=== PATIENT | male | born 1965 | race Caucasian/White ===

== ENCOUNTER 2024-07-26 04:56 | Observation (INO) ==
--- NOTE | 2024-06-20 14:17 | PAT Medication Instructions ---
Medication Instructions Date of Service June 20, 2024 Home Medications Medication Instructions Recorded etodolac 400 mg tablet 400 mg PO BID #60 tabs 01/15/24 Medication List: cetirizine 10 mg tablet 10 mg PO QAM losartan 100 mg tablet 100 mg PO QAM pantoprazole 20 mg tablet,delayed release (Protonix) 20 mg PO DAILY PRN GERD ropinirole 1 mg tablet 1 mg PO QPM etodolac 400 mg tablet 400 mg PO BID cholecalciferol (vitamin D3) 125 mcg (5,000 unit) tablet (Vitamin D3) 125 mcg PO QPM duloxetine 30 mg capsule,delayed release 30 mg PO BID MEDICATION INSTRUCTIONS: ASK your surgeon for instructions etodolac 400 mg tablet 400 mg PO BID DO NOT take the morning of surgery cetirizine 10 mg tablet 10 mg PO QAM losartan 100 mg tablet 100 mg PO QAM Take morning of surgery With a small sip of water, OTHERWISE NOTHING TO EAT OR DRINK AFTER MIDNIGHT: pantoprazole 20 mg tablet,delayed release (Protonix) 20 mg PO DAILY PRN GERD duloxetine 30 mg capsule,delayed release 30 mg PO BID Take evening before surgery cholecalciferol (vitamin D3) 125 mcg (5,000 unit) tablet (Vitamin D3) 125 mcg PO QPM ropinirole 1 mg tablet 1 mg PO QPM duloxetine 30 mg capsule,delayed release 30 mg PO BID Other Notes If you have any questions please call us at [phone] or [phone] or [phone] or [phone]
--- NOTE | 2024-06-23 10:40 | Anesthesiology Consultation ---
Date of Service June 23, 2024 Assessment & Plan (1) Encounter for pre-operative examination: - Infectious disease screening: Per assessment on 06/23/24- No known recent infectious disease contacts or current infectious disease symptoms. - Patient acceptable risk for surgery pending surgeon-ordered PCP preop evaluation (Dr. Jaylen Bee/[facility], appt 06/28). Chart Review Chart Review: Patient seen in Pre Admission Testing Teaching & Discussion Pre-Anesthesia Teaching/Discussion Notes: Instructed NPO after midnight before surgery,except medications with 15 cc of water. Medication instructions provided according to the PAT guidelines. History Surgery Operation Date: 07/26/24 07:45 Proposed Procedures p C5-C6 Anterior Cervical Discectomy and Fusion - Luis Mohan, Height/Weight Height: 5 ft 10 in Weight: 111.6 kg Allergies Allergy/AdvReac Type Severity Reaction Status Date / Time Sulfa (Sulfonamide Allergy Hives, Verified 06/20/24 14:47 Antibiotics) rash, swelling Medications Home Medications Medication Instructions Recorded Confirmed Last Taken cetirizine 10 mg tablet 10 mg PO QAM 04/17/23 06/20/24 Unknown losartan 100 mg tablet 100 mg PO QAM 12/09/23 06/20/24 Unknown pantoprazole 20 mg tablet,delayed 20 mg PO DAILY PRN GERD 12/09/23 06/20/24 Unknown release (Protonix) ropinirole 1 mg tablet 1 mg PO QPM 12/09/23 06/20/24 Unknown etodolac 400 mg tablet 400 mg PO BID #60 tabs 01/15/24 06/20/24 Unknown cholecalciferol (vitamin D3) 125 125 mcg PO QPM 06/20/24 06/20/24 Unknown mcg (5,000 unit) tablet (Vitamin D3) duloxetine 30 mg capsule,delayed 30 mg PO BID 06/20/24 06/20/24 Unknown release Past Medical History Medical History Anxiety Arthritis Dyslipidemia Hx GERD (gastroesophageal reflux disease) History of COVID-2019- resolved Hypertension Obesity Paresthesia Occasional in both arms (r/t cervical issues) Renal calculi Hx, no surgery Restless leg Sleep apnea CPAP (compliant) Exercise / Class Metabolic Activity II 4-5 Yardwork/Stairs/Walk up hill (one FS: No CP, no SOB) Past Family History Family History Denies family history of Rheumatoid arthritis Past Surgical History Surgical History History of hernia repair As baby Past Anesthesia History No Hx of Anesthesia Complications and No Family Hx of Anesthesia Complications History of PONV No Hx of PONV and No Hx of Motion Sickness Social History Smoking Status: Former smoker Do You Dip or Chew Tobacco: No (Quit 06/08/24; advised NPO protocol) Smoking End Date: Quit Hx Alcohol Use: Yes alcohol intake frequency: holidays/special occasions only Hx Substance Use: No substance use type: does not use Review of Systems Patient denies chest pain, shortness of breath, dyspnea on exertion, fever, chills, cough, wheezing. Physical Exam Vital Signs BP 144/89 P 72 TEMP 98.1 SP02 97%RA RESP 16 Physical Mildly decreased cervical extension range of motion. Full TMJ range of motion. TMD 3 finger breaths Mallampati Score I Dentition: missing molar Lungs: clear throughout to auscultation Cardiac: regular rate and rhythm, no murmurs noted Spine: normal Carotid arteries: negative bruit Extremities: no LE edema Lab Results Anesthesia Preop Results Results Anesthesia Widget: WBC 6.49 K/ul (4.8-10.8) 06/23/24 Hgb 13.8 g/dl (14.0-18.0) L 06/23/24 Hct 41.0 % (42.0-52.0) L 06/23/24 Plt 184 K/uL (130-400) 06/23/24 Na 138 mmol/L (136-145) 06/23/24 K 3.8 mmol/L (3.5-5.1) 06/23/24 Cl 103 mmol/L (98-107) 06/23/24 CO2 28 mmol/L (21-32) 06/23/24 BUN 17 mg/dl (6-23) 06/23/24 Creat 1.13 mg/dl (0.6-1.4) 06/23/24 Glucose Level 107 mg/dl (70-99(Fasting)) H 06/23/24 PT 10.6 Seconds (9.0-12.0) 06/23/24 PTT 27 Seconds (21-31) 06/23/24 INR 1.0 (0.9-1.1) 06/23/24 Urine Color Yellow 06/23/24 Urine Appearance Clear (Clear) 06/23/24 Urine pH 5.5 (4.5-7.5) 06/23/24 Urine Specific [place] 1.019 (1.000-1.030) 06/23/24 Urine Protein Negative (Negative) 06/23/24 Urine Glucose (UA) Negative (Negative) 06/23/24 Urine Ketones Negative (Negative) 06/23/24 Urine Blood Negative (Negative) 06/23/24 Urine Nitrite Negative (Negative) 06/23/24 Urine Bilirubin Negative (Negative) 06/23/24 Urine Urobilinogen Negative (Negative) 06/23/24 Urine Leukocyte Esterase Negative (Negative) 06/23/24 Blood Type A Negative 06/23/24 Antibody Screen NEGATIVE 06/23/24 Testing Electrocardiogram Date: 06/23/24 NSR at 65bpm. "Normal ECG" Chest X-Ray Date: 06/23/24 Findings: There are no confluent pulmonary infiltrates. The heart size is within normal limits. No pleural effusion or pneumothorax is seen. There is no definite pulmonary nodule. No fracture is noted. No foreign body is seen Impression: No active disease
[2024-07-26] MEDS: LR 15ML/HR IV SCH (05:37)
[2024-07-26] MEDS: VANCOMYCIN HCL 1,750 MG in SODIUM CHLORIDE 0.9% 500 ML IV SCH (05:37)
[2024-07-26] MEDS: LR 60ML/HR IV SCH (05:48)
[2024-07-26] MEDS: GABAPENTIN 600 MG DOSE PO SCH (05:50)
[2024-07-26] MEDS: ACETAMINOPHEN 500 MG TAB PO SCH (05:50)
[2024-07-26] MEDS ORDERED: CeleBREX 200 MG CAP PO SCH (06:00)
[2024-07-26] MEDS ORDERED: PROPOFOL IV EMULSION 10 MG/ML 20 ML VIAL IV ONE (06:39)
[2024-07-26] MEDS ORDERED: ONDANSETRON INJ 2 MG/ML 2 ML VIAL ONE (06:39)
[2024-07-26] MEDS ORDERED: LIDOCAINE 2% 2 ML VIAL/AMP(20MG/ML) INFIL ONE (06:39)
[2024-07-26] MEDS ORDERED: ROCURONIUM BROMIDE 10 MG/ML 5 ML VIAL IV ONE ×2 (06:39→08:17)
[2024-07-26] MEDS ORDERED: MIDAZOLAM HCL 1 MG/ML 2ML VIAL ONE (06:39)
[2024-07-26] MEDS ORDERED: DEXAMETHASONE SOD INJ 4 MG/ML VIAL ONE (06:39)
[2024-07-26] MEDS ORDERED: fentaNYL citrate PF 100 MCG/2 ML VIAL ONE (06:39)
[2024-07-26] MEDS ORDERED: ONDANSETRON INJ 2 MG/ML 2 ML VIAL IV PRN ×2 (07:17→12:45)
[2024-07-26] MEDS ORDERED: ATROPINE SULFATE 0.1 MG/ML 10ML SYR IV PRN (07:17)
[2024-07-26] MEDS ORDERED: ePHEDrine sulfate 50 MG/ML AMP IV PRN (07:17)
--- NOTE | 2024-07-26 07:37 | History & Physical Bridge Note ---
Date of Service July 26, 2024 History & Physical Bridge Note I have examined the patient, reviewed the History & Physical and in the interval since the performance of the History & Physical I have noted the following changes of clinical significance: no changes noted
--- NOTE | 2024-07-26 07:38 | History & Physical Report ---
Date of Service July 26, 2024 Assessment & Plan (1) Cervical stenosis of spinal canal: Plan: C5-C6 anterior cervical discectomy and fusion History of Present Illness Chief Complaint: Neck and arm pain Primary Care Provider: Scar Bone PA-C This is a 9-year-old male presents for chronic persistent neck and arm pain after failing course of nonoperative care is here for surgical invention. Allergies Allergy/AdvReac Type Severity Reaction Status Date / Time Sulfa (Sulfonamide Allergy Hives, Verified 07/26/24 05:25 Antibiotics) rash, swelling Home Medications Medication Instructions Recorded Confirmed Type cetirizine 10 mg tablet 10 mg PO QAM 04/17/23 07/26/24 History losartan 100 mg tablet 100 mg PO QAM 12/09/23 07/26/24 History pantoprazole 20 mg tablet,delayed 20 mg PO DAILY PRN GERD 12/09/23 07/26/24 History release (Protonix) ropinirole 1 mg tablet 1 mg PO QPM 12/09/23 07/26/24 History etodolac 400 mg tablet 400 mg PO BID #60 tabs 01/15/24 07/26/24 Rx cholecalciferol (vitamin D3) 125 125 mcg PO QPM 06/20/24 07/26/24 History mcg (5,000 unit) tablet (Vitamin D3) duloxetine 30 mg capsule,delayed 30 mg PO BID 06/20/24 07/26/24 History release Past Med/Surg History Problem List (Updated 07/26/24 @ 07:38 by Luis Mohan DO) Cervical stenosis of spinal canal Cervical radicular pain Paresthesia Arthritis Medical History Anxiety Arthritis Dyslipidemia Hx GERD (gastroesophageal reflux disease) History of COVID-19 2020- resolved Hypertension Obesity Paresthesia Occasional in both arms (r/t cervical issues) Renal calculi Hx, no surgery Restless leg Sleep apnea CPAP (compliant) Surgical History History of hernia repair As baby Family History Denies family history of Rheumatoid arthritis Social History (Updated 04/17/23 @ 08:40 by Luis Hartley DO) Smoking Status: Former smoker Tobacco Type: Smokeless Tobacco (Dip or Chew) Smoking End Date: Quit ; Second Hand Exposure: No; Do You Dip or Chew Tobacco: No (Quit 06/08/24; advised NPO protocol); Tobacco Cessation Education Requested by Patient: No Hx Alcohol Use: Yes Hx Substance Use: No Preferred Language: Mexican Communication Ability: Effective Waistline Joiner Overlock Required: No Beliefs That Will Affect Care: None Current Living Situation: Spouse Other Information That Helps Us Care for You: No Feels Safe at Home: Yes Safety Concerns: Feels Safe At This Time Assistive Devices: CPAP, Glasses and Hearing Aid - Bilateral Assistive Devices Comment: glasses prn Physical Exam Physical Exam: Patient is alert and oriented heart regular rhythm lungs clear Results & Data Results & Data Vital Signs (Past 12 Hours) Vital Signs Temp Pulse Resp BP Pulse Ox O2 Del Method 07/26/24 05:38 Room Air, CPAP 07/26/24 05:27 36.7 C 72 18 164/99 H 96 Room Air
[2024-07-26] MEDS: ceFAZolin 330 MG/ML 1 GM VIAL ONE (08:23)
[2024-07-26] MEDS ORDERED: SUGAMMADEX SODIUM 200 MG/2 ML VIAL IV ONE ×2 (08:49→08:51)
--- NOTE | 2024-07-26 09:02 | Operative Report ---
Post Operative Report Pre & Post Diagnosis Operation Date: 07/26/24 07:45 Pre-Op Diagnosis: Cervical Spondylosis with Radiculopathy, Cervical Post-Op Diagnosis: Cervical Spondylosis with Radiculopathy, Cervical I identified the patient and participated in the time-out.: Yes Procedure Operation Date: 07/26/24 07:45 Actual Procedures #1 anterior cervical discectomy with bilateral foraminotomies C5-C6. #2 anterior cervical arthrodesis C5-C6. #3 placement of Spira 8 mm cage filled with os design bone graft C5-C6. #4 application of K2 and plate and screws across C5-C6. Surgeon Luis Mohan, Tactical Air Control Party Manager Rossy Vang Estimated Blood Loss 10 Findings Consistent with Post-Op Diagnosis Specimens None Indications This is a 59-year-old male presents publish diagnosis of failing course of nonoperative care is here for surgical invention. Description of Procedure Patient was met with identified informed consent obtained. Patient was then taken to the operative suite underwent intubation placed in a supine position on the William table with head Wheat head field hockey coach. All bony promises well-padded eyes inspected to ensure no external pressure placed upon the. This point the anterior cervical spine was prepped and draped in sterile fashion. The assistance of fluoroscopy notified the C5-C6 disc base a transverse incision was placed on the right anterior aspect of the cervical spine overlying this region. Blunt dissection with assistance of bipolar electrocautery performed down to and exposing the anterior cervical spine at C5-C6. Self-retaining retractors placed. Then performed a complete discectomy of C5-C6 out to the uncovertebral joints bilaterally. [place] distracting pins were utilized to assist in visualization. Removed all posterior annular fibers longitudinal ligament bilateral foraminotomies performed. Endplates burred to subcortical bleeding b one and an 8 mm spiral cage filled with os design bone graft tapped in position. Distracting apparatus was removed. All anterior osteophytes burred to smooth cortical surface. K2 M plate and screws applied with the assistance of fluoroscopy. The incision was then closed with 2 Vicryl in the fascia and 4 Monocryl for final skin closure. Steri-Strips sterile dressing placed. Patient waken taken to recovery to PACU in stable condition. Please note spinal cord monitoring was utilized at the procedure no changes noted. Rossy Vang was present at the entire surgery involved the patient positioning complex portion of the surgery and final skin closure. I attest to the content of the Intraoperative Record and any orders documented therein. Any exceptions are noted below.
[2024-07-26] MEDS: fentaNYL citrate PF 100 MCG/2 ML VIAL IV PRN (09:19)
--- NOTE | 2024-07-26 09:41 | Fluoroscopy Report ---
FL cervical 2-3V CLINICAL HISTORY: C5-C6 ACDF COMPARISON STUDY: None. FLUOROSCOPY TIME: 8.4 seconds. Ka,r: 1.23 mGy FLUOROSCOPIC IMAGES: 2 FINDINGS: Fluoroscopy was provided during C5-C6 anterior discectomy and fusion. Hardware is intact. E ndotracheal tube is partially imaged. Linear radiodensity on the initial image is not present on the subsequent image. Suspected surgical drain in place. IMPRESSION: Fluoroscopy provided during C5-C6 anterior discectomy and fusion. ACT 112: Negative or not required by law. Electronically signed by: Chilo Silver M.D. 07/26/2024 9:39 AM
[2024-07-26] MEDS ORDERED: ePHEDrine sulfate 50 MG/5 ML SYR ONE (10:03)
[2024-07-26] MEDS: hydrALAZINE HCL 20 MG/ML VIAL IV STA (10:38)
[2024-07-26] MEDS: HYDROmorphone INJ 1 MG/ML SYRINGE IV PRN (10:48)
[2024-07-26] MEDS ORDERED: ACETAMINOPHEN 1,000 MG/100 ML VIAL IV PRN (12:45)
[2024-07-26] MEDS ORDERED: diphenhydrAMINE Capsule 25 MG CAP PO PRN (12:45)
[2024-07-26] MEDS ORDERED: hydrOXYzine HCl 25 MG TAB PO PRN (12:45)
[2024-07-26] MEDS ORDERED: HYDROmorphone INJ 0.5 MG/0.5 ML SYR IV PRN (12:45)
[2024-07-26] MEDS ORDERED: NALOXONE HCL 0.4 MG/1 ML VIAL/CARP IV PRN (12:45)
[2024-07-26] MEDS ORDERED: bisacodyL 10 MG SUPP PR PRN (12:45)
[2024-07-26] MEDS ORDERED: ALUMINUM/MAGNESIUM SUSP 30 ML UDC PO PRN (12:45)
[2024-07-26] MEDS ORDERED: MAGNESIUM HYDROXIDE SUSP 30 ML UDC PO PRN (12:45)
[2024-07-26] MEDS ORDERED: LORazepam 2 MG/1 ML VIAL IV PRN (12:45)
[2024-07-26] MEDS ORDERED: DO NOT ADMINISTER FLU VACCINE PRN (12:45)
[2024-07-26] MEDS ORDERED: METOCLOPRAMIDE HCL INJ 5 MG/ML 2 ML VIAL IV PRN (12:45)
[2024-07-26] MEDS ORDERED: PANTOprazole 40 MG TAB PO PRN (12:45)
[2024-07-26] MEDS ORDERED: dexAMETHasone 8 MG in SYRINGE 0 ML IV PRN (12:45)
[2024-07-26] MEDS ORDERED: SOD PHOSPHATE/SOD BIPHOSPHATE ENEMA 132 ML BTL PR PRN (12:45)
[2024-07-26] MEDS ORDERED: ACETAMINOPHEN 500 MG TAB PO PRN (12:45)
[2024-07-26] MEDS ORDERED: PROMETHAZINE 12.5 MG/50.5 ML BAG IV PRN (12:45)
[2024-07-26] MEDS ORDERED: LORazepam 0.5 MG TAB PO PRN (12:45)
[2024-07-26] MEDS ORDERED: HYDROmorphone INJ 1 MG/ML SYRINGE IV PRN (12:45)
[2024-07-26] MEDS ORDERED: RACEPINEPHRINE 2.25% NEBU SOLN 0.5 ML VIAL INH PRN (12:45)
[2024-07-26] MEDS ORDERED: ONDANSETRON 4 MG OD TAB PO PRN (12:45)
[2024-07-26] MEDS ORDERED: DO NOT ADMINISTER PNEUMOCOCCAL VACCINE PRN (12:45)
[2024-07-26] MEDS ORDERED: FAMOTIDINE 20 MG TAB PO PRN (12:45)
[2024-07-26] MEDS: FLOSEAL HEMOSTATIC MATRIX 10ML TOP ONE (12:57)
[2024-07-26] MEDS: hydrALAZINE HCL 20 MG/ML VIAL ONE (12:58)
--- NOTE | 2024-07-26 13:01 | Consultation ---
<Statement entered by Jude Rahman DO - 07/26/24 14:57> I have seen and examined the patient and have discussed the case with the advance practice provider. I have reviewed the advanced practitioner's documentation, and I agree with, and take responsibility for that plan of care. Patient states he has a moderate amount of pain. States he did not take any of his medications this morning per for surgery. is at bedside Dose losartan today, continue to monitor blood pressure Patient brought his own CPAP from home and can use to treat his sleep apnea Further medical plan of care as outlined below I spent a total of 15 minutes coordinating, documenting, and providing care for this patient excluding time spent by another provider/QHP. Date of Consultation July 26, 2024 Assessment & Plan (1) S/P spinal surgery: (2) Cervical stenosis of spinal canal: (3) Hypertension: (4) Anxiety: (5) GERD (gastroesophageal reflux disease): (6) Restless leg: (7) Dyslipidemia: (8) Sleep apnea: Plan This is a 59yo M with a PMH of HTN, HLD, restless leg syndrome, GERD and other medical problems listed below who is POD#0 s/p anterior cervical discectomy with bilateral foraminotomies C5-C6 etc by Dr. Mohan. S/p spinal surgery POD#0 s/p anterior cervical discectomy with bilateral foraminotomies C5-C6 etc by Dr. Mohan Per ortho for pain control, wound care, anticoagulation and activities Monitor H&H (pre-op hgb 13.8, EBL 10ml), monitor with daily CBC Continue duloxetine, holding etodolac Continue incentive spirometry, PT/OT when appropriate HTN BP elevated post-operatively at 179/104. Did not take meds pre-operatively, will give his losartan now Optimize pain control Monitor closely RLS Continue ropinirole HS GERD Continue pantoprazole PRN DVT Ppx: Aristides nielsen Code status: FULL PCP: [facility] in [place] Dispo: Admitted to med/surg by primary service Patient seen in collaboration with Dr. Rahman. Please see addendum. I spent a total of 50 minutes coordinating, documenting, and providing care for this patient excluding time spent in the performance of separately billed services or time spent by another provider/QHP. History of Present Illness Reason for Consultation: post op med mgmt Attending Physician: Luis M Kimberlee, DO History of Present Illness This is a 59yo M with a PMH of HTN, HLD, restless leg syndrome, GERD and other medical problems listed below who is POD#0 s/p anterior cervical discectomy with bilateral foraminotomies C5-C6 etc by Dr. Mohan. Patient is feeling well postoperatively. Has a feeling of pressure at surgical site but denies any pain or paresthesias in bilateral upper extremity. Denies any other acute issues postoperatively. No fever, chills, lightheadedness, headache, chest pain or shortness of breath, nausea, vomiting, abdominal pain. Has not urinated postoperatively. No recent diarrhea or constipation. Receives most of his medical care through the [facility] in [place] but also follows with a primary care provider and [facility]. Allergies Allergy/AdvReac Type Severity Reaction Status Date / Time Sulfa (Sulfonamide Allergy Hives, Verified 07/26/24 05:25 Antibiotics) rash, swelling Home Medications Medication Instructions Recorded Confirmed Type cetirizine 10 mg tablet 10 mg PO QAM 04/17/23 07/26/24 History losartan 100 mg tablet 100 mg PO QAM 12/09/23 07/26/24 History pantoprazole 20 mg tablet,delayed 20 mg PO DAILY PRN GERD 12/09/23 07/26/24 History release (Protonix) ropinirole 1 mg tablet 1 mg PO QPM 12/09/23 07/26/24 History etodolac 400 mg tablet 400 mg PO BID #60 tabs 01/15/24 07/26/24 Rx cholecalciferol (vitamin D3) 125 125 mcg PO QPM 06/20/24 07/26/24 History mcg (5,000 unit) tablet (Vitamin D3) duloxetine 30 mg capsule,delayed 30 mg PO BID 06/20/24 07/26/24 History release Patient History Medical History (Updated 07/26/24 @ 13:03 by Tianna Jensen PA-C) Obesity Anxiety Hypertension Paresthesia Occasional in both arms (r/t cervical issues) Arthritis GERD (gastroesophageal reflux disease) Renal calculi Hx, no surgery Dyslipidemia Hx Sleep apnea CPAP (compliant) Restless leg Surgical History History of hernia repair As baby Family History (Updated 07/26/24 @ 14:10 by Tianna Jensen PA-C) Other Diabetes Denies family history of Rheumatoid arthritis Social History Smoking Status: Former smoker Tobacco Type: Smokeless Tobacco (Dip or Chew) Smoking End Date: Quit ; Second Hand Exposure: No; Do You Dip or Chew Tobacco: No (Quit 06/08/24; advised NPO protocol); Tobacco Cessation Education Requested by Patient: No Hx Alcohol Use: Yes Hx Substance Use: No Preferred Language: Wolof Communication Ability: Effective Family Sociologist Required: No Beliefs That Will Affect Care: None Current Living Situation: Spouse Other Information That Helps Us Care for You: No Feels Safe at Home: Yes Safety Concerns: Feels Safe At This Time Assistive Devices: CPAP, Glasses and Hearing Aid - Bilateral Assistive Devices Comment: glasses prn Review of Systems Review of Systems: At least ten systems reviewed and negative except as noted in the HPI. Physical Exam Physical Exam: General Appearance: WD/WN, vitals as above, NAD, pleasant, conversing easily Head: normocephalic, atraumatic Eyes: normal inspection ENT: external ear and nose normal Neck: + C collar in place, anterior cervical surgical dressing c/d/i, DANK drain visualized Respiratory: normal respiratory effort, lungs clear to auscultation Cardiovascular: regular rate, rhythm, normal peripheral pulses, no BLE edema Abdomen/GI: normal bowel sounds, soft, nontender Extremities/Musculoskeletal: no cyanosis or clubbing, extremities motor strength 5/5, + teds Neurologic: PERRL, CN's II-XI intact bilaterally and moves all extremities Psychiatric: A+Ox3, euthymic affect Skin: no rashes, normal color, warm/dry Results & Data Vital Signs (Past 12 Hours) Vital Signs Temp Pulse Pulse Resp BP BP Pulse Ox 07/26/24 12:52 83 16 97 07/26/24 12:15 36.2 C L 78 15 167/106 H 96 07/26/24 11:45 83 14 169/103 H 97 07/26/24 11:30 83 23 178/107 H 96 07/26/24 11:15 78 16 177/103 H 96 07/26/24 11:00 72 15 160/97 H 96 07/26/24 10:45 75 15 167/99 H 96 07/26/24 10:35 71 14 169/105 H 96 07/26/24 10:25 68 15 169/110 H 95 07/26/24 10:15 36 C L 65 17 158/100 H 98 07/26/24 10:05 68 16 159/104 H 97 07/26/24 09:55 67 17 128/92 96 07/26/24 09:45 68 14 155/98 H 99 07/26/24 09:35 78 17 148/90 H 98 07/26/24 09:25 75 14 147/90 H 97 07/26/24 09:15 79 15 106/90 99 07/26/24 09:07 36.1 C L 78 17 145/95 H 97 07/26/24 05:38 07/26/24 05:27 36.7 C 72 18 164/99 H 96 O2 Del Method O2 Flow Rate 07/26/24 12:52 Nasal Cannula 2 07/26/24 12:15 Nasal Cannula 2 07/26/24 11:45 Nasal Cannula 2 07/26/24 11:30 Nasal Cannula 2 07/26/24 11:15 Nasal Cannula 2 07/26/24 11:00 Nasal Cannula 2 07/26/24 10:45 Nasal Cannula 2 07/26/24 10:35 Nasal Cannula 2 07/26/24 10:25 Nasal Cannula 2 07/26/24 10:15 Nasal Cannula 2 07/26/24 10:05 Nasal Cannula 2 07/26/24 09:55 Nasal Cannula 2 07/26/24 09:45 Oxymask 4 07/26/24 09:35 Oxymask 5 07/26/24 09:25 Oxymask 5 07/26/24 09:15 Oxymask 5 07/26/24 09:07 Oxymask 5 07/26/24 05:38 Room Air, CPAP 07/26/24 05:27 Room Air Diagnostic Findings Cervical Spine X-Ray 07/26/24 07:45 FL cervical 2-3V CLINICAL HISTORY: C5-C6 ACDF COMPARISON STUDY: None. FLUOROSCOPY TIME: 8.4 seconds. Ka,r: 1.23 mGy FLUOROSCOPIC IMAGES: 2 FINDINGS: Fluoroscopy was provided during C5-C6 anterior discectomy and fusion. Hardware is intact. Endotracheal tube is partially imaged. Linear radiodensity on the initial image is not present on the subsequent image. Suspected surgical drain in place. IMPRESSION: Fluoroscopy provided during C5-C6 anterior discectomy and fusion. ACT 112: Negative or not required by law. Electronically signed by: Chilo Silver M.D. 07/26/2024 9:39 AM
--- NOTE | 2024-07-26 13:53 | Anesthesiology Progress Note ---
Date of Service July 26, 2024 Anesthesia Post Procedure Vital Signs Vital Signs: Temp Pulse Pulse Resp BP BP Pulse Ox 07/26/24 13:40 35.9 C L 89 16 179/104 H 97 07/26/24 13:10 36.7 C 75 16 172/106 H 97 07/26/24 12:52 83 16 97 07/26/24 12:45 07/26/24 12:40 36.5 C 83 16 163/101 H 96 07/26/24 12:15 36.2 C L 78 15 167/106 H 96 07/26/24 11:45 83 14 169/103 H 97 07/26/24 11:30 83 23 178/107 H 96 07/26/24 11:15 78 16 177/103 H 96 07/26/24 11:00 72 15 160/97 H 96 07/26/24 10:45 75 15 167/99 H 96 07/26/24 10:35 71 14 169/105 H 96 07/26/24 10:25 68 15 169/110 H 95 07/26/24 10:15 36 C L 65 17 158/100 H 98 07/26/24 10:05 68 16 159/104 H 97 07/26/24 09:55 67 17 128/92 96 07/26/24 09:45 68 14 155/98 H 99 07/26/24 09:35 78 17 148/90 H 98 07/26/24 09:25 75 14 147/90 H 97 07/26/24 09:15 79 15 106/90 99 07/26/24 09:07 36.1 C L 78 17 145/95 H 97 07/26/24 05:38 07/26/24 05:27 36.7 C 72 18 164/99 H 96 Pulse Ox O2 Del Method O2 Del Method O2 Flow Rate O2 Flow Rate 07/26/24 13:40 Nasal Cannula 07/26/24 13:10 Nasal Cannula 2 07/26/24 12:52 Nasal Cannula 2 07/26/24 12:45 98 Nasal Cannula 2 07/26/24 12:40 Nasal Cannula 2 07/26/24 12:15 Nasal Cannula 2 07/26/24 11:45 Nasal Cannula 2 07/26/24 11:30 Nasal Cannula 2 07/26/24 11:15 Nasal Cannula 2 07/26/24 11:00 Nasal Cannula 2 07/26/24 10:45 Nasal Cannula 2 07/26/24 10:35 Nasal Cannula 2 07/26/24 10:25 Nasal Cannula 2 07/26/24 10:15 Nasal Cannula 2 07/26/24 10:05 Nasal Cannula 2 07/26/24 09:55 Nasal Cannula 2 07/26/24 09:45 Oxymask 4 07/26/24 09:35 Oxymask 5 07/26/24 09:25 Oxymask 5 07/26/24 09:15 Oxymask 5 07/26/24 09:07 Oxymask 5 07/26/24 05:38 Room Air, CPAP 07/26/24 05:27 Room Air Pain Intensity Neck: Pain Intensity: 4 Right Shoulder: Pain Intensity: 6 Transfer of Care Handoff Completed per policy Notes Mental Status: alert / awake / arousable and participated in evaluation Patient Amnestic to Procedure: Yes Nausea / Vomiting: adequately controlled Pain: adequately controlled Airway Patency, RR, SpO2: stable & adequate BP & HR: stable & adequate Hydration State: stable & adequate Anesthetic Complications: no major complications apparent and Pt Satisfied with anesthetic care
[2024-07-26] MEDS: ceFAZolin 2000MG 2,000 MG/15 ML SYR IV SCH (14:47)
[2024-07-26] MEDS: LOSARTAN POTASSIUM 50 MG TAB PO ONE (14:47)
[2024-07-26] MEDS: traMADol HCL 50 MG TABLET PO PRN (16:53)
[2024-07-26] MEDS: rOPINIRole HCL 1 MG TABLET PO SCH (20:19)
[2024-07-26] MEDS: DULoxetine HCL 30 MG CAP PO SCH (20:19)
[2024-07-26] MEDS: CHOLECALCIFEROL 125 MCG (5,000 UNITS) TAB PO SCH (20:19)
[2024-07-26] MEDS: DOCUSATE SODIUM/SENNA 50/8.6MG TAB PO SCH (20:20)
[2024-07-27] MEDS: oxyCODONE HCL IR 5 MG TAB (IMMEDIATE RELEASE) PO PRN (02:08)
[2024-07-27] MEDS: POLYETHYLENE (MIRALAX) 17 GM PACK PO SCH (06:19)
[2024-07-27 06:35] LABS: Hematocrit (blood only) 41.6 % (42.0-52.0); Hemoglobin 13.8 g/dl (14.0-18.0); Mean Corpuscular Hemoglobin 28.7 pg (25.0-34.0); Mean Corpuscular Hgb Conc 33.2 g/dL (32.0-36.0); Mean Corpuscular Volume 86.5 fL (80.0-100.0); Mean Platelet Volume 10.3 fL (9.4-12.4); Platelet Count 216 K/uL (130-400); RDW Coefficient of Variation 12.9 % (11.5-14.5); RDW Standard Deviation 40.6 fL (36.4-46.3); Red Blood Count 4.81 M/uL (4.70-6.10); White Blood Count 12.55 K/ul (4.8-10.8)
[2024-07-27 06:55] LABS: BUN Creatinine Ratio 14.2 (10-20); Calcium 9.5 mg/dl (8.6-10.3); Creatinine Clr Calc Pharmacy 89.9 ml/min
[2024-07-27 07:40] VITALS: O2SAT 97
[2024-07-27] MEDS: CETIRIZINE HCL 10 MG TABLET PO SCH (07:42)
[2024-07-27] MEDS: LOSARTAN POTASSIUM 50 MG TAB PO SCH (07:43)
[2024-07-27] MEDS: dexAMETHasone 6 MG in SYRINGE 0 ML IV SCH (07:43)
[2024-07-27 08:01] VITALS: BP 138/88; PULSE 64; RESP 15; TEMP 98.2
--- NOTE | 2024-07-27 08:21 | Discharge Summary ---
Date of Service July 27, 2024 Admission HPI Per Admitting Provider This is a 9-year-old male presents for chronic persistent neck and arm pain after failing course of nonoperative care is here for surgical invention. Principal Diagnosis Cervical spinal stenosis with radiculopathy Discharge Data Allergies Allergy/AdvReac Type Severity Reaction Status Date / Time Sulfa (Sulfonamide Allergy Hives, Verified 07/26/24 05:25 Antibiotics) rash, swelling Consultations 07/26/24 12:45 Consult Hospitalist Routine Procedures Performed Operation Date: 07/26/24 07:45 Actual Procedures p C5-C6 Anterior Cervical Discectomy and Fusion, Spinal Cord Monitoring(Not Applicable) - Luis Mohan DO Ordered Studies 07/26/24 07:45 FL cervical 2-3V Routine Hospital Course (1) Cervical stenosis of spinal canal: Patient underwent anterior cervical discectomy and fusion tolerated as well as taken orthopedic for postoperative bed postop he progressed appropriately. Swallowing well. No hoarseness. Arm symptoms markedly improved. Subsequently discharged home. Discharge orders instructions from the chart for further review. Total Time Total Time Spent Total Time Spent (In Minutes): 20 minutes Discharge Plan Discharge Items Patient Disposition: Home - Self-Care Reason For Visit: Cervical Spondylosis with Radiculopathy, Cervical Discharge Diagnosis: Cervical radiculopathy Activity: As commented below Non-emergency contact: Primary Care Provider Call non-emergency contact if: you have any medication questions Follow-up/Referrals: Scar Bone PA-C [Primary Care Provider] - Diet: Regular Addtl Attending Provider Instructions: ACTIVITY RECOMMENDATIONS: SELF CARE INSTRUCTIONS AFTER CERVICAL FUSIONS 1. No smoking. Smoking drastically decreases the chance of a solid fusion. 2. No bending, lifting more than 5 pounds, or twisting (roll like a log when turning in bed). 3. You may shower 3 days after surgery. Thoroughly dry wound. Do not soak in the tub. 4. Cervical collar: Must be worn at all times including sleeping. You may remove the brace only to bath, eat and if you are sitting in a recliner. 5. Please walk as much as you can for exercise. Gradually increase the distance that you walk as your endurance increases. 6. You may return to previous diet. SPECIAL CARE INSTRUCTIONS: VERY IMPORTANT TO READ AND REVIEW A. Do not take any anti-inflammatory medications (i.e. Indocin, Advil, Aspirin, Naprosyn, Aleve, Motrin, etc.) as these may inhibit the chance of a solid fusion. Tylenol is okay to take. B. Your surgical incision has been closed with a cosmetic suture under the skin that will dissolve in about 6 weeks. In 14 days, you can use a pair of clean scissors and cut the suture that is left outside of the skin at the ends of your incision. C. Complications are uncommon, but please contact us if you have any signs or symptoms of: 1. wound infection (fever higher than 102.5 degrees F, redness, separation of wound, drainage, or increasing pain from the incision) 2. blood clots in legs (pain, swelling, redness and warmth in legs) 3. urinary tract infection (fever higher than 102.5 degrees, burning upon urination or increased frequency of urination) 4. nerve problems (inability to walk on your toes or heels, numbness, loss of bowel or bladder control) 5. any other symptoms that concern you. D. Please call the office at if you have any concerns or questions about your operation or recovery. MANAGING PAIN AFTER SPINAL SURGERY 1. Narcotic medication is intended for short-term use and will be provided for surgical pain. Surgical pain usually lasts for a period of 4-6 weeks. Narcotic medication includes Percocet, Vicodin, Darvocet, Tylenol #3 or Lortab. 2. Longer-term pain is more appropriately treated with non-narcotic medication such as Tylenol ES. 3. Muscle spasm is not appropriately treated with narcotics. Muscle relaxers such as Soma, Flexeril or Skelaxin can be used along with Tylenol ES. 4. Remember that we all live with some "aches and pains". This is not unusual or uncommon after an injury or as we get older. 5. We will provide appropriate medication within the normal guidelines of their prescribed use. We will also be very cautious and aware of potential abuse and extended duration of patients' medication needs. 6. Please allow 2-3 days to process refills. Prescriptions will not be mailed but must be picked up at the office. FOLLOW UP VISIT: Keep your scheduled follow-up appointment. Any questions, please call the office at . Pending Studies at Discharge: No Stand-Alone Forms: My [facility], Smoking Cessation Medications and DC Order Prescriptions: New tramadol 50 mg tablet 50 mg PO Q6H PRN (Reason: pain, moderate) Qty: 30 0RF oxycodone 5 mg tablet 5 mg PO Q6H PRN (Reason: pain) Qty: 20 0RF Continued cetirizine 10 mg tablet 10 mg PO QAM ropinirole 1 mg tablet 1 mg PO QPM losartan 100 mg tablet 100 mg PO QAM pantoprazole [Protonix] 20 mg tablet,delayed release (DR/EC) 20 mg PO DAILY PRN (Reason: GERD) Patient Comments: takes ~every other day to every 3 days duloxetine 30 mg capsule,delayed release(DR/EC) 30 mg PO BID cholecalciferol (vitamin D3) [Vitamin D3] 125 mcg (5,000 unit) Tablet 125 mcg PO QPM Discontinued etodolac 400 mg tablet 400 mg PO BID Qty: 60 2RF Discharge Orders: Discharge Order (Routine); Ordered 07/27/24 Ordered By: Luis Mohan Admission Data Admit Date/Time: 07/26/24 09:05 Attending Provider: Luis Mohan Admit Provider: Luis Mohan Primary Care Provider: Scar Bone Other Providers: Jude Rahman
== END 2024-07-27 11:15 | disposition home or self-care (01) ==
LOC: PACUINP 04:56 → ASU 04:56 → 3E 12:41

== ENCOUNTER 2025-03-03 05:52 | Inpatient (IN) ==
--- NOTE | 2025-01-27 11:33 | PAT Medication Instructions ---
Medication Instructions Date of Service January 27, 2025 Home Medications Medication Instructions Recorded oxycodone 5 mg tablet 5 mg PO Q6H PRN pain #20 tabs 07/26/24 tramadol 50 mg tablet 50 mg PO Q6H PRN pain, moderate 07/26/24 #30 tabs cetirizine 10 mg tablet 10 mg PO QAM losartan 100 mg tablet 100 mg PO QAM pantoprazole 20 mg tablet,delayed release (Protonix) 20 mg PO DAILY PRN GERD ropinirole 1 mg tablet 1 mg PO QPM cholecalciferol (vitamin D3) 125 mcg (5,000 unit) tablet (Vitamin D3) 125 mcg PO QPM oxycodone 5 mg tablet 5 mg PO Q6H PRN pain tramadol 50 mg tablet 50 mg PO Q6H PRN pain, moderate cyanocobalamin (vitamin B-12) 1,000 mcg/mL injection solution 0 mcg IM Q30D nortriptyline 50 mg capsule 50 mg PO HS tizanidine 4 mg tablet 4 mg PO UD PRN muscle spasms Continue as directed pantoprazole 20 mg tablet,delayed release (Protonix) 20 mg PO DAILY PRN GERD (if needed) cyanocobalamin (vitamin B-12) 1,000 mcg/mL injection solution 0 mcg IM Q30D DO NOT take the morning of surgery cetirizine 10 mg tablet 10 mg PO QAM losartan 100 mg tablet 100 mg PO QAM Take morning of surgery With a small sip of water, OTHERWISE NOTHING TO EAT OR DRINK AFTER MIDNIGHT: oxycodone 5 mg tablet 5 mg PO Q6H PRN pain (if needed) tramadol 50 mg tablet 50 mg PO Q6H PRN pain, moderate (if needed) tizanidine 4 mg tablet 4 mg PO UD PRN muscle spasms (if needed) Take evening before surgery ropinirole 1 mg tablet 1 mg PO QPM cholecalciferol (vitamin D3) 125 mcg (5,000 unit) tablet (Vitamin D3) 125 mcg PO QPM oxycodone 5 mg tablet 5 mg PO Q6H PRN pain (if needed) tramadol 50 mg tablet 50 mg PO Q6H PRN pain, moderate (if needed) nortriptyline 50 mg capsule 50 mg PO HS tizanidine 4 mg tablet 4 mg PO UD PRN muscle spasms (if needed) Other Notes If you have any questions please call us at [phone] or [phone] or [phone] or [phone]
--- NOTE | 2025-02-02 09:06 | Anesthesiology Consultation ---
Date of Service February 02, 2025 Assessment & Plan (1) Encounter for pre-operative examination: - Check BSG DOS (Elevated glucose at 140 on preop labs. No reported hx of diabetes/prediabetes. Will recheck BSG DOS). - Infectious disease screening: Per assessment on 01/26/25- No known recent infectious disease contacts or current infectious disease symptoms. - S/P C5-6 ACDF (07/26/24): Grade view 1, atraumatic elective glidescope#4, ETT 7.5, [facility] - Patient acceptable risk for surgery pending surgeon-ordered PCP preop evaluation (JORI Nguyen, appt ~02/28). Chart Review Chart Review: Patient seen in Pre Admission Testing Teaching & Discussion Pre-Anesthesia Teaching/Discussion Notes: Instructed NPO after midnight before surgery,except medications with 15 cc of water. Medication instructions provided according to the PAT guidelines. History Surgery Operation Date: 03/03/25 07:45 Proposed Procedures p L5-S1 Decompression and Fusion - Luis oMhan DO Height/Weight Height: 5 ft 10 in Weight: 107.8 kg Allergies Allergy/AdvReac Type Severity Reaction Status Date / Time Sulfa (Sulfonamide Allergy Hives, Verified 01/26/25 12:12 Antibiotics) rash, swelling Medications Home Medications Medication Instructions Recorded Confirmed Last Taken cetirizine 10 mg tablet 10 mg PO QAM 04/17/23 01/26/25 07/24/24 losartan 100 mg tablet 100 mg PO QAM 12/09/23 01/26/25 07/24/24 pantoprazole 20 mg tablet,delayed 20 mg PO DAILY PRN GERD 12/09/23 01/26/25 07/19/24 release (Protonix) ropinirole 1 mg tablet 1 mg PO QPM 12/09/23 01/26/25 07/25/24 21:00 cholecalciferol (vitamin D3) 125 125 mcg PO QPM 06/20/24 01/26/25 07/25/24 17:00 mcg (5,000 unit) tablet (Vitamin D3) oxycodone 5 mg tablet 5 mg PO Q6H PRN pain #20 tabs 07/26/24 01/26/25 Unknown tramadol 50 mg tablet 50 mg PO Q6H PRN pain, moderate 02/18/25 08/21/25 Unknown #30 tabs cyanocobalamin (vitamin B-12) 0 mcg IM Q30D 01/26/25 01/26/25 Unknown 1,000 mcg/mL injection solution nortriptyline 50 mg capsule 50 mg PO HS 01/26/25 01/26/25 Unknown tizanidine 4 mg tablet 4 mg PO UD PRN muscle spasms 01/26/25 01/26/25 Unknown Past Medical History Medical History Anxiety Arthritis Dyslipidemia Hx GERD (gastroesophageal reflux disease) Hypertension Memory impairment Hx 11/2024, had recent testing due to episodes of memory changes EEG 12/05/24: "EEG was normal during wakefulness and drowsiness. No focal abnormalities, potentially epileptogenic discharges, or abnormal slow activity were seen" Patient states he was told "nothing to worry about" Obesity Paresthesia Occasional in both arms (r/t cervical issues); improved since neck surgery 07/2024 Renal calculi Hx, no surgery Restless leg Sleep apnea CPAP (compliant) Exercise / Class Metabolic Activity II 4-5 Yardwork/Stairs/Walk up hill (one FS: No CP, no SOB) Past Family History Family History Other Diabetes Denies family history of Rheumatoid arthritis Past Surgical History Surgical History History of hernia repair As baby Hx of cervical spine surgery C5-6 ACDF (07/26/24): Grade view 1, atraumatic elective glidescope#4, ETT 7.5, [facility] Past Anesthesia History No Hx of Anesthesia Complications and No Family Hx of Anesthesia Complications History of PONV No Hx of PONV and No Hx of Motion Sickness Social History Smoking Status: Former smoker Do You Dip or Chew Tobacco: No (quit 06/08/24) Smoking End Date: 25-30 years ago Hx Alcohol Use: Yes alcohol intake frequency: holidays/special occasions only Hx Substance Use: No substance use type: does not use Review of Systems Patient denies chest pain, shortness of breath, dyspnea on exertion, fever, chills, cough, wheezing, palpitations. Physical Exam Vital Signs BP 112/79 P 68 TEMP 97.8 SP02 98%RA RESP 16 Physical Decreased cervical extension range of motion. Full TMJ range of motion. TMD 3 finger breaths Mallampati Score I Dentition: no dentition abnormality Lungs: clear throughout to auscultation Cardiac: regular rate and rhythm, no murmurs noted Spine: normal Carotid arteries: negative bruit Extremities: no LE edema Lab Results Anesthesia Preop Results Results Anesthesia Widget: WBC 5.69 K/ul (4.8-10.8) 02/02/25 Hgb 13.6 g/dl (14.0-18.0) L 02/02/25 Hct 41.2 % (42.0-52.0) L 02/02/25 Plt 167 K/uL (130-400) 02/02/25 Na 139 mmol/L (136-145) 02/02/25 K 3.9 mmol/L (3.5-5.1) 02/02/25 Cl 104 mmol/L (98-107) 02/02/25 CO2 28 mmol/L (21-32) 02/02/25 BUN 12 mg/dl (6-23) 02/02/25 Creat 1.20 mg/dl (0.6-1.4) 02/02/25 Glucose Level 140 mg/dl (70-99(Fasting)) H 02/02/25 PT 10.5 Seconds (9.0-12.0) 02/02/25 PTT 28 Seconds (21-31) 02/02/25 INR 1.0 (0.9-1.1) 02/02/25 Urine Color Yellow 02/02/25 Urine Appearance Clear (Clear) 02/02/25 Urine pH 6.0 (4.5-7.5) 02/02/25 Urine Specific Jay 1.007 (1.000-1.030) 02/02/25 Urine Protein Negative (Negative) 02/02/25 Urine Glucose (UA) Negative (Negative) 02/02/25 Urine Ketones Negative (Negative) 02/02/25 Urine Blood Negative (Negative) 02/02/25 Urine Nitrite Negative (Negative) 02/02/25 Urine Bilirubin Negative (Negative) 02/02/25 Urine Urobilinogen Negative (Negative) 02/02/25 Urine Leukocyte Esterase Negative (Negative) 02/02/25 Blood Type A Negative 02/02/25 Antibody Screen NEGATIVE 02/02/25 Testing Electrocardiogram Date: 06/23/24 NSR at 65bpm. "Normal ECG" Chest X-Ray Date: 06/23/24 Findings: There are no confluent pulmonary infiltrates. The heart size is within normal limits. No pleural effusion or pneumothorax is seen. There is no definite pulmonary nodule. No fracture is noted. No foreign body is seen Impression: No active disease
[2025-03-03] MEDS: CeleBREX 200 MG CAP PO SCH (06:21)
[2025-03-03] MEDS: ACETAMINOPHEN 500 MG TAB PO SCH (06:21)
[2025-03-03] MEDS: LR 15ML/HR IV SCH (06:22)
[2025-03-03] MEDS: GABAPENTIN 600 MG DOSE PO SCH (06:22)
[2025-03-03] MEDS: LR 60ML/HR IV SCH (06:22)
[2025-03-03] MEDS ORDERED: LIDOCAINE 2% 2 ML VIAL/AMP(20MG/ML) INFIL ONE (07:03)
[2025-03-03] MEDS ORDERED: PROPOFOL IV EMULSION 10 MG/ML 20 ML VIAL IV ONE ×2 (07:03→09:37)
[2025-03-03] MEDS ORDERED: DEXAMETHASONE SOD INJ 4 MG/ML VIAL ONE (07:03)
[2025-03-03] MEDS ORDERED: ROCURONIUM BROMIDE 10 MG/ML 5 ML VIAL IV ONE ×2 (07:03→08:18)
[2025-03-03] MEDS ORDERED: ONDANSETRON INJ 2 MG/ML 2 ML VIAL ONE (07:03)
[2025-03-03] MEDS ORDERED: MIDAZOLAM HCL 1 MG/ML 2ML VIAL ONE (07:03)
[2025-03-03] MEDS ORDERED: ATROPINE SULFATE 0.1 MG/ML 10ML SYR IV PRN (07:37)
[2025-03-03] MEDS ORDERED: PROMETHAZINE HCL 6.25 MG in SODIUM CHLORIDE 0.9% 50 ML IV PRN (07:37)
--- NOTE | 2025-03-03 07:43 | History & Physical Bridge Note ---
Date of Service March 03, 2025 History & Physical Bridge Note I have examined the patient, reviewed the History & Physical and in the interval since the performance of the History & Physical I have noted the following changes of clinical significance: no changes noted
--- NOTE | 2025-03-03 07:44 | History & Physical Report ---
Date of Service March 03, 2025 Assessment & Plan (1) Lumbosacral spondylosis with radiculopathy: Plan: L5-S1 decompression fusion History of Present Illness Chief Complaint: Back and leg pain Primary Care Provider: Scar Bone PA-C This is a 59-year-old male presents for chronic persistent back and leg pain and failing course of nonoperative care is here for surgical intervention Allergies Allergy/AdvReac Type Severity Reaction Status Date / Time Sulfa (Sulfonamide Allergy Hives, Verified 03/03/25 06:06 Antibiotics) rash, swelling Home Medications Medication Instructions Recorded Confirmed Type cetirizine 10 mg tablet 10 mg PO QAM 04/17/23 03/03/25 History losartan 100 mg tablet 100 mg PO QAM 12/09/23 03/03/25 History pantoprazole 20 mg tablet,delayed 20 mg PO DAILY PRN GERD 12/09/23 03/03/25 History release (Protonix) ropinirole 1 mg tablet 1 mg PO QPM 12/09/23 03/03/25 History cholecalciferol (vitamin D3) 125 125 mcg PO QPM 06/20/24 03/03/25 History mcg (5,000 unit) tablet (Vitamin D3) oxycodone 5 mg tablet 5 mg PO Q6H PRN pain #20 tabs 07/26/24 03/03/25 Rx tramadol 50 mg tablet 50 mg PO Q6H PRN pain, moderate 07/26/24 03/03/25 Rx #30 tabs cyanocobalamin (vitamin B-12) 0 mcg IM Q30D 01/26/25 03/03/25 History 1,000 mcg/mL injection solution nortriptyline 50 mg capsule 50 mg PO HS 01/26/25 03/03/25 History tizanidine 4 mg tablet 4 mg PO UD PRN muscle spasms 01/26/25 03/03/25 History Past Med/Surg History Problem List (Updated 03/03/25 @ 07:44 by Luis Mohan DO) Lumbosacral spondylosis with radiculopathy Cervical stenosis of spinal canal Encounter for pre-operative examination Arthritis Medical History Anxiety Arthritis Dyslipidemia Hx GERD (gastroesophageal reflux disease) Hypertension Memory impairment Hx 11/2024, had recent testing due to episodes of memory changes EEG 12/05/24: "EEG was normal during wakefulness and drowsiness. No focal abnormalities, potentially epileptogenic discharges, or abnormal slow activity were seen" Patient states he was told "nothing to worry about" Obesity Paresthesia Occasional in both arms (r/t cervical issues); improved since neck surgery 07/2024 Renal calculi Hx, no surgery Restless leg Sleep apnea CPAP (compliant) Surgical History History of hernia repair As baby Hx of cervical spine surgery C5-6 ACDF (07/26/24): Grade view 1, atraumatic elective glidescope#4, ETT 7.5, [facility] Family History Other Diabetes Denies family history of Rheumatoid arthritis Social History Smoking Status: Former smoker Tobacco Type: Smokeless Tobacco (Dip or Chew) Smoking End Date: 25-30 years ago; Second Hand Exposure: No; Do You Dip or Chew Tobacco: No (quit 06/08/24); Tobacco Cessation Education Requested by Patient: No Hx Alcohol Use: Yes Hx Substance Use: No Preferred Language: [place] Communication Ability: Effective Bed And Breakfast Innkeeper Required: No Beliefs That Will Affect Care: None Current Living Situation: Spouse Other Information That Helps Us Care for You: No Feels Safe at Home: Yes Safety Concerns: Feels Safe At This Time Assistive Devices: CPAP, Glasses and Hearing Aid - Bilateral Physical Exam Physical Exam: Patient is alert and oriented Heart regular rhythm Lungs clear Results & Data Results & Data Vital Signs (Past 12 Hours) Vital Signs Temp Pulse Resp BP Pulse Ox O2 Del Method 03/03/25 06:11 36.4 C L 74 20 166/112 H 96 Room Air
[2025-03-03] MEDS ORDERED: LABETALOL HCL IV 5 MG/ML 20ML IV ONE (08:23)
[2025-03-03] MEDS: BUPIVACAINE/EPINEPHRINE 0.25% 1:200,000 30 ML VIAL ONE (08:42)
[2025-03-03] MEDS ORDERED: SUGAMMADEX SODIUM 200 MG/2 ML VIAL IV ONE (08:59)
[2025-03-03] MEDS ORDERED: ePHEDrine sulfate 50 MG/5 ML SYR ONE ×2 (09:17→09:23)
[2025-03-03] MEDS ORDERED: PHENYLEPHRINE HCL 10 MG/ML VIAL ONE (09:23)
[2025-03-03] MEDS: ceFAZolin 330 MG/ML 1 GM VIAL ONE (09:27)
[2025-03-03] MEDS: FLOSEAL HEMOSTATIC MATRIX 10ML TOP ONE (09:27)
--- NOTE | 2025-03-03 09:58 | Operative Report ---
Post Operative Report Pre & Post Diagnosis Operation Date: 03/03/25 07:45 Pre-Op Diagnosis: Lumbosacral spondylosis with radiculopathy Post-Op Diagnosis: Lumbosacral spondylosis with radiculopathy I identified the patient and participated in the time-out.: Yes Procedure Operation Date: 03/03/25 07:45 Actual Procedures #1 lumbar injection by lumbar facet foraminotomies of 5 S1. #2 posterior spinal fusion. #3 placed posterior instrumentation l5-s1 using ulloa. #4 interbody fusion l5-s1. #5 placement of spira 13 x 26 mm x 2 at l5-s1. #6 placement l ocally harvested morselized autograft and posterior gutters. #7 placement of proteus combined with koros in the posterior lateral gutters and os design interbody space. #8 application of versa wrap of the exposed dura. Surgeon Luis Mohan, DO [employer] Supervisor None Estimated Blood Loss 200 Findings See Below Patient is 5 foot 10 weighing over 110 kg with a BMI in excess of 34. The patient's body habitus created technical difficulty with positioning exposure the procedure itself and at least 30% increased operative time. And recommending a modifier 22. Specimens None Indications This is a 59-year-old male presents publish diagnosis of failing course of nonoperative care is here for surgical invention. Description of Procedure Patient was met with identified informed consent obtained. Patient was then taken to the operative suite underwent and patient placed in a prone position on the William table atop the Naeem frame. All bony prominences well-padded eyes inspected to ensure no external pressure placed upon them. This point the lumbar spine was prepped and draped in normal sterile fashion. Sharp dissection with the assistance of Bovie cautery performed down to and exposing the lamina and transverse processes of L5 and sacral ala bilaterally. I did have to use my deepest retractors in order to adequately expose this level. Complete laminectomy of L5 was then performed including bilateral medial facetectomies and foraminotomies addressing all neural compression. Pedicle screws were then placed at L5 and S1 levels bilaterally with assistance of fluoroscopy and the process giovanna placed. By way of transforaminal approach on the right and discectomy of L5-S1 was performed endplates corrected to subcortical bleeding bone and a 13 x 26 mm Spira cage tapped in position. Then proceeded to the left transforaminal region at L5-S1. Again discectomy performed. Endplates coated to subcortical bleeding bone and a second 13 x 26 mm Spira cage tapped in position. Please note cages were packed with os design bone graft. The rods were then locked in final position bilaterally. The transverse processes of L5 and sacral ala burred to subcortical bleeding bone. Proteus combined with Koros was placed in the posterior gutters. Versa wrap placed of exposed dura. 15 round DANK inserted. Incision was then closed with 1 Vicryl fascia 2-0 Vicryl subcutaneously and 4 Monocryl for final skin closure. Steri-Strips sterile dressing placed. Patient waken taken to PACU in stable condition. Im ordering 10 grams of Collagen Powder ([facility] A6010 Primary Dressing) and 10 bordered super absorbent ([facility] A6196 Secondary Dressing) to treat an incision wound that was caused by a spine procedure. The incision is approximately 2 cm(W) x 2 cm(L) down to the spinal column and epidural space 2 cm (D) in size and is a full thickness wound showing no signs of infection. Collagen comes in 1 gram packets so 10 packets were ordered. Given the size of the wound, with moderate exudate I chose to order a 10 day supply. The patient will be provided instructions for proper application of the collagen wound kit. The patient will be asked to apply the collagen powder daily and then cover it with sterile dressings dispensed. Collagen was selected as I expect the collagen to attract monocytes and fibroblasts, act as a sacrificial substrate for MMPs, and ultimately proved a matrix for tissue and vessel growth. The collagen will act as a primary dressing in this scenario. It is medically necessary for proper healing of these wounds to improve bioavailability and contact with each wound surface, this is also to help prevent infection of wounds and promote healing ultimately leading to a better healing outcome and limit the risk of infection. I attest to the content of the Intraoperative Record and any orders documented therein. Any exceptions are noted below.
[2025-03-03] MEDS: HYDROmorphone INJ 2 MG/ML SYR/VIAL IV PRN (10:15)
--- NOTE | 2025-03-03 10:42 | Fluoroscopy Report ---
FL lumbar spine 2-3V CLINICAL HISTORY: L5-S1 DECOMPRESSION AND FUSION COMPARISON STUDY: None FLUOROSCOPY TIME: 20 seconds FLUOROSCOPY IMAGES: 2 EXPOSURE DOSE: 22 mGy FINDINGS: Fluoroscopy was provided for L5-S1 fusion. IMPRESSION: Intraoperative fluoroscopy. ACT 112: Negative or not required by law. Electronically signed by: Zaheer Otto M.D. 03/03/2025 10:40 AM
--- NOTE | 2025-03-03 11:42 | Anesthesiology Progress Note ---
Date of Service March 03, 2025 Anesthesia Post Procedure Vital Signs Vital Signs: Temp Pulse Pulse Resp BP Pulse Ox O2 Del Method 03/03/25 11:30 81 20 131/93 96 Nasal Cannula 03/03/25 11:15 80 16 118/80 95 Nasal Cannula 03/03/25 11:00 74 12 109/69 93 Nasal Cannula 03/03/25 10:50 36.4 C L 84 12 98/65 L 95 Nasal Cannula 03/03/25 10:40 78 12 98/64 L 94 Oxymask 03/03/25 10:30 74 12 105/54 L 94 Oxymask 03/03/25 10:20 72 12 95/52 L 95 Oxymask 03/03/25 10:10 75 12 97/52 L 96 Oxymask 03/03/25 10:01 36.2 C L 80 14 103/71 95 Oxymask 03/03/25 06:11 36.4 C L 74 20 166/112 H 96 Room Air O2 Flow Rate 03/03/25 11:30 3 03/03/25 11:15 3 03/03/25 11:00 3 03/03/25 10:50 3 03/03/25 10:40 4 03/03/25 10:30 4 03/03/25 10:20 6 03/03/25 10:10 6 03/03/25 10:01 6 03/03/25 06:11 Pain Intensity Bilateral Lower Back: Pain Intensity: 5 Back: Pain Intensity: 5 Transfer of Care Handoff Completed per policy Notes Mental Status: alert / awake / arousable and participated in evaluation Nausea / Vomiting: adequately controlled Pain: adequately controlled Airway Patency, RR, SpO2: stable & adequate BP & HR: stable & adequate Hydration State: stable & adequate Anesthetic Complications: no major complications apparent and Pt Satisfied with anesthetic care
[2025-03-03] MEDS ORDERED: FAMOTIDINE 20 MG TAB PO PRN (12:00)
[2025-03-03] MEDS ORDERED: ALUMINUM/MAGNESIUM SUSP 30 ML UDC PO PRN (12:00)
[2025-03-03] MEDS ORDERED: NALOXONE HCL 0.4 MG/1 ML VIAL/CARP IV PRN (12:00)
[2025-03-03] MEDS ORDERED: METOCLOPRAMIDE HCL INJ 5 MG/ML 2 ML VIAL IV PRN (12:00)
[2025-03-03] MEDS ORDERED: PROMETHAZINE 12.5 MG/50.5 ML BAG IV PRN (12:00)
[2025-03-03] MEDS ORDERED: ONDANSETRON 4 MG OD TAB PO PRN (12:00)
[2025-03-03] MEDS ORDERED: diphenhydrAMINE Capsule 25 MG CAP PO PRN (12:00)
[2025-03-03] MEDS ORDERED: ACETAMINOPHEN 1,000 MG/100 ML VIAL IV PRN (12:00)
[2025-03-03] MEDS ORDERED: LORazepam 0.5 MG TAB PO PRN (12:00)
[2025-03-03] MEDS ORDERED: ONDANSETRON INJ 2 MG/ML 2 ML VIAL IV PRN (12:00)
[2025-03-03] MEDS ORDERED: SOD PHOSPHATE/SOD BIPHOSPHATE ENEMA 132 ML BTL PR PRN (12:00)
[2025-03-03] MEDS ORDERED: CYCLOBENZAPRINE HCL 10 MG TAB PO PRN (12:00)
[2025-03-03] MEDS ORDERED: HYDROmorphone INJ 0.5 MG/0.5 ML SYR IV PRN (12:00)
[2025-03-03] MEDS ORDERED: DO NOT ADMINISTER PNEUMOCOCCAL VACCINE PRN (12:00)
[2025-03-03] MEDS ORDERED: MAGNESIUM HYDROXIDE SUSP 30 ML UDC PO PRN (12:00)
[2025-03-03] MEDS ORDERED: DO NOT ADMINISTER FLU VACCINE PRN (12:00)
[2025-03-03] MEDS ORDERED: HYDROmorphone INJ 1 MG/ML SYRINGE IV PRN (12:00)
[2025-03-03] MEDS: LACTATED RINGER'S 1,000 ML IV SCH (12:40)
--- NOTE | 2025-03-03 12:40 | Consultation ---
Date of Consultation March 03, 2025 Assessment & Plan (1) Lumbosacral spondylosis with radiculopathy: (2) S/P lumbar fusion: (3) Hypertension: (4) GERD (gastroesophageal reflux disease): (5) Restless leg: (6) Sleep apnea: Plan 59 year old male with PMH significant for hypertension, restless leg syndrome, GERD, MODE on CPAP, allergies and lumbosacral spondylosis with radiculopathy who underwent L5-S1 decompression and fusion on 03/03/[address] Mohan. We have been consulted for post operative medical management. Lumbosacral spondylosis with radiculopathy POD#0 L5-S1 decompression and fusion on 03/03/[address] Mohan Activity level, pain control, DVT prophylaxis, bowel regimen, wound/drain care as per primary team Monitor labs in am for post op anemia (preop Hgb 13.6 and EBL 200cc) Encourage incentive spirometer Continue nortriptyline HS PT in am Hypertension Continue losartan GERD Continue pantoprazole RLS Continue ropinirole Allergies Continue zyrtec MODE Continue home CPAP DVT Prophylaxis: TEDs/SCDs per primary team Code Status: FULL CODE PCP: CT / [facility] Disposition: per primary team Patient seen in collaboration with Dr Winter. Please see addendum. Thank you for this consultation. We will continue to follow this patient with angella thompson. A member of the [facility] team is available 29/12 via the role in [employer] - please don't hesitate to reach out with questions. I spent a total of 60 minutes coordinating, documenting and providing care for this patient excluding time spent in the performance of separately billed services or time spent by another provider/QHP. Supervising Physician Co-Signing Physician Notes Patient seen and examined Agree with findings and plans as detailed by Codi PATIÑO History of Present Illness Requesting Physician: Luis Mohan DO Reason for Consultation: Post operative medical management Attending Physician: Luis Mohan DO History of Present Illness 59 year old male with PMH significant for hypertension, restless leg syndrome, GERD, MODE on CPAP, allergies, cervical stenosis s/p discectomy and foraminotomies in Jul 2024, and lumbosacral spondylosis with radiculopathy who underwent L5-S1 decompression and fusion on 03/03/[address] Mohan. We have been consulted for post operative medical management. Patient was seen in his inpatient room post operatively. Reports he was having right hip pain and his right leg would give out on him while walking, which is what prompted him to get surgery. Currently has low back discomfort rated 5/10. Denies any numbness or tingling of the legs. Denies dizziness, lightheadedness, chest pain, SOB, abdominal pain, N/V. Denies any changes in urination or bowel habits prior to surgery. Lives with his . They just bought a [place] house in [place] and are currently living in a camper while in [place]. They report it has two bedrooms and is spacious for living. Allergies Allergy/AdvReac Type Severity Reaction Status Date / Time Sulfa (Sulfonamide Allergy Hives, Verified 03/03/25 06:06 Antibiotics) rash, swelling Home Medications Medication Instructions Recorded Confirmed Type cetirizine 10 mg tablet 10 mg PO QAM 04/17/23 03/03/25 History losartan 100 mg tablet 100 mg PO QAM 12/09/23 03/03/25 History pantoprazole 20 mg tablet,delayed 20 mg PO DAILY PRN GERD 12/09/23 03/03/25 History release (Protonix) ropinirole 1 mg tablet 1 mg PO QPM 12/09/23 03/03/25 History cholecalciferol (vitamin D3) 125 125 mcg PO QPM 06/20/24 03/03/25 History mcg (5,000 unit) tablet (Vitamin D3) oxycodone 5 mg tablet 5 mg PO Q6H PRN pain #20 tabs 07/26/24 03/03/25 Rx tramadol 50 mg tablet 50 mg PO Q6H PRN pain, moderate 07/26/24 03/03/25 Rx #30 tabs cyanocobalamin (vitamin B-12) 0 mcg IM Q30D 01/26/25 03/03/25 History 1,000 mcg/mL injection solution nortriptyline 50 mg capsule 50 mg PO HS 01/26/25 03/03/25 History tizanidine 4 mg tablet 4 mg PO UD PRN muscle spasms 01/26/25 03/03/25 History oxycodone 5 mg tablet 5 mg PO Q6H PRN pain #30 tabs 03/03/25 Rx tramadol 50 mg tablet 50 mg PO Q6H PRN pain, moderate 03/03/25 Rx #30 tabs Patient History Medical History (Updated 03/03/25 @ 12:34 by HAROON Corea) Arthritis Encounter for pre-operative examination Cervical stenosis of spinal canal Memory impairment Hx 11/2024, had recent testing due to episodes of memory changes EEG 12/05/24: "EEG was normal during wakefulness and drowsiness. No focal abnormalities, potentially epileptogenic discharges, or abnormal slow acti vity were seen" Patient states he was told "nothing to worry about" Obesity Anxiety Hypertension Paresthesia Occasional in both arms (r/t cervical issues); improved since neck surgery 07/2024 Arthritis GERD (gastroesophageal reflux disease) Renal calculi Hx, no surgery Dyslipidemia Hx Sleep apnea CPAP (compliant) Restless leg Surgical History (Updated 03/03/25 @ 12:34 by HAROON Corea) Hx of cervical spine surgery C5-6 ACDF (07/26/24): Grade view 1, atraumatic elective glidescope#4, ETT 7.5, [facility] History of hernia repair As baby Family History Other Diabetes Denies family history of Rheumatoid arthritis Social History Smoking Status: Former smoker Tobacco Type: Smokeless Tobacco (Dip or Chew) Smoking End Date: 25-30 years ago; Second Hand Exposure: No; Do You Dip or Chew Tobacco: No (quit 06/08/24); Tobacco Cessation Education Requested by Patient: No Hx Alcohol Use: Yes Hx Substance Use: No Preferred Language: Maltese Communication Ability: Effective Recreation Director Required: No Beliefs That Will Affect Care: None Current Living Situation: Spouse Other Information That Helps Us Care for You: No Feels Safe at Home: Yes Safety Concerns: Feels Safe At This Time Assistive Devices: Cane and CPAP Review of Systems Review of Systems: All systems reviewed & are unremarkable except as noted in HPI & below Physical Exam Physical Exam: General/Psych: WD/WN, sitting up in bed, NAD, conversing easily Head: normocephalic, atraumatic Eyes: normal inspection, PERRL, conjunctivae pink ENT: external ear and nose normal, oropharynx normal Neck: normal visual inspection, trachea midline, no thyromegaly Respiratory: normal respiratory effort, lungs clear to auscultation with diminished right base, no accessory muscle use Cardiovascular: regular rate and rhythm, no murmur/rub/gallop, no JVD Extremities: no cyanosis or clubbing, normal peripheral pulses, no BLE edema, sensation intact BLE Abdomen/GI: hypoactive bowel sounds, soft, nontender Neurologic/MSK: A+Ox3, motor strength 5/5, moves all extremities Skin: no rashes, normal color, warm and dry, island dressing c/d/i, DANK drain with sanguinous output Results & Data Vital Signs (Past 12 Hours) Vital Signs Temp Pulse Pulse Resp BP Pulse Ox O2 Del Method 03/03/25 12:00 80 14 143/84 H 95 Nasal Cannula 03/03/25 11:45 78 12 134/84 95 Nasal Cannula 03/03/25 11:30 81 20 131/93 96 Nasal Cannula 03/03/25 11:15 80 16 118/80 95 Nasal Cannula 03/03/25 11:00 74 12 109/69 93 Nasal Cannula 03/03/25 10:50 36.4 C L 84 12 98/65 L 95 Nasal Cannula 03/03/25 10:40 78 12 98/64 L 94 Oxymask 03/03/25 10:30 74 12 105/54 L 94 Oxymask 03/03/25 10:20 72 12 95/52 L 95 Oxymask 03/03/25 10:10 75 12 97/52 L 96 Oxymask 03/03/25 10:01 36.2 C L 80 14 103/71 95 Oxymask 03/03/25 06:11 36.4 C L 74 20 166/112 H 96 Room Air O2 Flow Rate 03/03/25 12:00 3 03/03/25 11:45 3 03/03/25 11:30 3 03/03/25 11:15 3 03/03/25 11:00 3 03/03/25 10:50 3 03/03/25 10:40 4 03/03/25 10:30 4 03/03/25 10:20 6 03/03/25 10:10 6 03/03/25 10:01 6 03/03/25 06:11 Medications Administered Current Inpatient Medications Acetaminophen (Acetaminophen 500 Mg Tab) 1,000 mg PO PREOP JESUS Stop: 03/03/25 18:00 Last Admin: 03/03/25 06:21 Dose: 1,000 mg Acetaminophen (Acetaminophen 500 Mg Tab) 1,000 mg PO Q8H PRN PRN Reason: MILD Pain (1,2,3) & Pre PT Stop: 04/02/25 13:59 Al Hydrox/Mg Hydrox/Simethicone (Aluminum/Magnesium Susp 30 Ml Udc) 30 ml PO Q6H PRN PRN Reason: Dyspepsia Stop: 04/02/25 11:59 Atropine Sulfate (Atropine Sulfate 0.1 Mg/Ml 10ml Syr) 0.5 mg IV Q1M PRN PRN Reason: PACU Use-HR<40 &/or Bradycardi Stop: 03/03/25 15:37 Bisacodyl (Bisacodyl 10 Mg Supp) 10 mg [place] DAILY PRN PRN Reason: Constipation Stop: 04/02/25 11:59 Celecoxib (Celebrex 200 Mg Cap) 200 mg PO PREOP JESUS Stop: 03/03/25 18:00 Last Admin: 03/03/25 06:21 Dose: 200 mg Cetirizine HCl (Cetirizine Hcl 10 Mg Tablet) 10 mg PO QAM JESUS Stop: 04/03/25 08:59 Cyclobenzaprine HCl (Cyclobenzaprine Hcl 10 Mg Tab) 10 mg PO Q8H PRN PRN Reason: Muscle Spasm Stop: 04/02/25 11:59 Diphenhydramine HCl (Diphenhydramine Capsule 25 Mg Cap) 25 mg PO Q6H PRN PRN Reason: Allergic Rhinitis/Insomnia Stop: 04/02/25 11:59 Ephedrine Sulfate (Ephedrine Sulfate 50 Mg/Ml Amp) 5 mg IV Q5M PRN PRN Reason: PACU Use Only-SBP<90 mmHg Stop: 03/03/25 15:37 Famotidine (Famotidine 20 Mg Tab) 20 mg PO Q12H PRN PRN Reason: Dyspepsia Stop: 04/02/25 11:59 Gabapentin (Gabapentin 600 Mg Dose) 600 mg PO PREOP JESUS Stop: 03/03/25 18:00 Last Admin: 03/03/25 06:22 Dose: 600 mg Hydromorphone HCl (Hydromorphone Inj 0.5 Mg/0.5 Ml Syr) 0.5 mg IV Q3H PRN PRN Reason: MODERATE Pain(4,5,6)/Pre PT Stop: 03/17/25 11:59 Hydromorphone HCl (Hydromorphone Inj 1 Mg/Ml Syringe) 1 mg IV Q3H PRN PRN Reason: SEVERE Pain (7,8,9,10) Stop: 03/17/25 11:59 Hydroxyzine HCl (Hydroxyzine Hcl 25 Mg Tab) 25 mg PO Q8H PRN PRN Reason: Anxiety Stop: 04/02/25 11:59 Lactated Ringer's (Lr) 1,000 mls @ 15 mls/hr IV .Q24H JESUS Stop: 03/04/25 05:59 Last Infusion: 03/03/25 07:52 Dose: Infused Lactated Ringer's (Lr) 1,000 mls @ 60 mls/hr IV .[id number] JESUS Stop: 03/03/25 22:39 Last Admin: 03/03/25 06:22 Dose: Not Given Cefazolin Sodium (Ancef 2000mg) 2,000 mg in 15 mls @ 3.75 mls/min IV PREOP JESUS; Protocol Stop: 03/03/25 18:00 Last Admin: 03/03/25 07:53 Dose: 3.75 mls/min Promethazine HCl 6.25 mg/ (Sodium Chloride) 50.25 mls @ 204 mls/hr IV ONCE PRN PRN Reason: PACU Use Only-Nausea/Vomiting Stop: 03/03/25 15:37 Acetaminophen (Ofirmev) 1,000 mg in 100 mls @ 400 mls/hr IV Q8H PRN PRN Reason: MILD Pain (1,2,3) & Pre PT Stop: 03/04/25 12:00 Cefazolin Sodium (Ancef 2000mg) 2,000 mg in 15 mls @ 3.75 mls/min IV Q8H JESUS; Protocol Stop: 03/06/25 08:03 Lactated Ringer's (Lr) 1,000 mls @ 75 mls/hr IV .[id number] JESUS Stop: 03/04/25 08:00 Last Admin: 03/03/25 12:40 Dose: 75 mls/hr Promethazine HCl (Phenergan) 12.5 mg in 50.5 mls @ 202 mls/hr IV Q6H PRN PRN Reason: Nausea And Vomiting Stop: 04/02/25 11:59 Dexamethasone 6 mg/ Syringe 1.5 mls @ 1 mls/min IV DAILY JESUS Stop: 03/06/25 09:02 Influenza Virus Vaccine Quadrival (Do Not Administer Flu Vaccine) 1 each N/A PRN PRN PRN Reason: Notification Stop: 04/02/25 11:59 Lorazepam (Lorazepam 0.5 Mg Tab) 0.5 mg PO Q8H PRN PRN Reason: Sedation/Anxiety Stop: 04/02/25 11:59 Lorazepam (Lorazepam 2 Mg/1 Ml Vial) 0.5 mg IV Q8H PRN PRN Reason: Sedation/Anxiety Stop: 04/02/25 11:59 Losartan Potassium (Losartan Potassium 50 Mg Tab) 100 mg PO QAM [facility] Stop: 04/03/25 08:59 Magnesium Hydroxide (Magnesium Hydroxide Susp 30 Ml Udc) 30 ml PO Q24H PRN PRN Reason: Constipation Stop: 04/02/25 11:59 Metoclopramide HCl (Metoclopramide Hcl Inj 5 Mg/Ml 2 Ml Vial) 10 mg IV Q6H PRN PRN Reason: Nausea &/or Vomiting Stop: 04/02/25 11:59 Naloxone HCl (Naloxone Hcl 0.4 Mg/1 Ml Vial/Carp) 0.1 mg IV Q5M PRN PRN Reason: Oversedation/Resp depression Stop: 04/02/25 11:59 Nortriptyline HCl (Nortriptyline Hcl 25 Mg Cap) 50 mg PO HS [facility] Stop: 04/02/25 20:59 Ondansetron HCl (Ondansetron Inj 2 Mg/Ml 2 Ml Vial) 4 mg IV Q6H PRN PRN Reason: Nausea &/or Vomiting Stop: 04/02/25 11:59 Ondansetron HCl (Ondansetron 4 Mg Od Tab) 4 mg PO Q6H PRN PRN Reason: Nausea Stop: 04/02/25 11:59 Oxycodone HCl (Oxycodone Hcl Ir 5 Mg Tab (Immediate Release)) 5 - 10 mg PO Q4H PRN PRN Reason: MOD/SEV Pain & Pre PT Stop: 03/17/25 11:59 Pantoprazole Sodium (Pantoprazole 40 Mg Tab) 40 mg PO DAILY PRN PRN Reason: GERD Stop: 04/02/25 11:59 Pneumococcal Polyvalent Vaccine (Do Not Administer Pneumococcal Vaccine) 1 each N/A PRN PRN PRN Reason: Notification Stop: 04/02/25 11:59 Polyethylene Glycol (Polyethylene (Miralax) 17 Gm Pack) 17 gm PO Q6 JESUS Stop: 04/03/25 05:59 Ropinirole HCl (Ropinirole Hcl 1 Mg Tablet) 1 mg PO QPM JESUS Stop: 04/02/25 20:59 Senna/Docusate Sodium (Docusate Sodium/Senna 50/8.6mg Tab) 2 tab PO HS JESUS Stop: 04/02/25 20:59 Sodium Biphosphate/Sodium Phosphate (Sod Phosphate/Sod Biphosphate Enema 132 Ml Btl) 132 ml [place] ONE PRN PRN Reason: Constipation Stop: 04/02/25 11:59 Tramadol HCl (Tramadol Hcl 50 Mg Tablet) 50 - 100 mg PO Q4H PRN PRN Reason: MOD/SEV Pain & Pre PT Stop: 04/02/25 11:59 Vitamin D (Cholecalciferol 125 Mcg (5,000 Units) Tab) 125 mcg PO QPM JESUS Stop: 04/02/25 20:59
[2025-03-03] MEDS: DOCUSATE SODIUM/SENNA 50/8.6MG TAB PO SCH (20:50)
[2025-03-03] MEDS: CHOLECALCIFEROL 125 MCG (5,000 UNITS) TAB PO SCH (20:51)
[2025-03-03] MEDS: NORTRIPTYLINE HCL 25 MG CAP PO SCH (20:51)
[2025-03-04] MEDS: POLYETHYLENE (MIRALAX) 17 GM PACK PO SCH (05:36)
--- NOTE | 2025-03-04 06:39 | Orthopedic Progress Note ---
Date of Service March 04, 2025 Assessment & Plan (1) S/P lumbar fusion: Plan 59-year-old gentleman postoperative day #1 status post L5-S1 decompression and fusion. He is doing well. Continue pain control. Continue PT. Monitor DANK output. Discharge home potentially tomorrow versus early next week Admission and Anticipated Discharge Date Admission Date: March 03, 2025 Subjective Postoperative day #1 status post L5-S1 1 decompression and fusion. Patient doing well. Was able to walk last evening. Pain is well-controlled. Review of Systems Review of Systems: All systems reviewed & are unremarkable except as noted in HPI & below Physical Exam Physical Exam: Sensation tact L2-S1 bilaterally. Active EHL/GSC/TA bilaterally. Bilateral feet warm and well-perfused. Results & Data Vital Signs (Past 12 Hours) Vital Signs Temp Pulse Resp BP Pulse Ox O2 Del Method 03/04/25 03:40 36.6 C 96 H 18 148/91 H 95 Room Air 03/03/25 23:06 36.6 C 105 H 20 157/70 H 94 Room Air 03/03/25 20:50 Room Air, CPAP 03/03/25 19:50 36.4 C L 101 H 18 165/81 H 95 Room Air
[2025-03-04] MEDS: dexAMETHasone 6 MG in SYRINGE 0 ML IV SCH (08:00)
[2025-03-04] MEDS: LOSARTAN POTASSIUM 50 MG TAB PO SCH (08:00)
[2025-03-04] MEDS: CETIRIZINE HCL 10 MG TABLET PO SCH (08:00)
[2025-03-04 08:48] LABS: Hematocrit (blood only) 39.0 % (42.0-52.0); Hemoglobin 12.6 g/dl (14.0-18.0); Immature Granulocytes # (auto) 0.14 K/uL (0.01-0.20); Immature Granulocytes % (auto) 0.9 %; Mean Corpuscular Hemoglobin 28.6 pg (25.0-34.0); Mean Corpuscular Volume 88.4 fL (80.0-100.0); Platelet Count 182 K/uL (130-400); RDW Standard Deviation 42.1 fL (36.4-46.3); Red Blood Count 4.41 M/uL (4.70-6.10); White Blood Count 14.83 K/ul (4.8-10.8)
[2025-03-04 09:11] LABS: Anion Gap 10.0 (3-11); Blood Urea Nitrogen 21.0 mg/dl (6-23); Calcium 8.9 mg/dl (8.6-10.3); Carbon Dioxide 26.0 mmol/L (21-32); Chloride 101.0 mmol/L (98-107); Creatinine Clr Calc Pharmacy 82.4 ml/min; Glucose 152.0 mg/dl (70-99(Fasting)); Potassium 4.5 mmol/L (3.5-5.1); Sodium 137.0 mmol/L (136-145)
--- NOTE | 2025-03-04 14:24 | Hospitalist Progress Note ---
Date of Service March 04, 2025 Assessment & Plan (1) Lumbosacral spondylosis with radiculopathy: (2) S/P lumbar fusion: (3) Hypertension: (4) GERD (gastroesophageal reflux disease): (5) Restless leg: (6) Sleep apnea: Plan 59 year old male with PMH significant for hypertension, restless leg syndrome, GERD, MODE on CPAP, allergies and lumbosacral spondylosis with radiculopathy who underwent L5-S1 decompression and fusion on 03/03/[address] Mohan. We have been consulted for post operative medical management. Lumbosacral spondylosis with radiculopathy S/P L5-S1 decompression and fusion on 03/03/[address] Mohan Activity level, pain control, DVT prophylaxis, bowel regimen, wound/drain care as per primary team Monitor labs in am for post op anemia (preop Hgb 13.6 and EBL 200cc) Encourage incentive spirometer Continue nortriptyline HS Minimal pain at the back without any radiation Management will be as per orthopedic surgeon Hypertension Continue losartan Blood pressure remains stable in the upper side at 148/84 and will continue current medications GERD Continue pantoprazole No epigastric discomfort, nausea no vomiting RLS Continue ropinirole Allergies Continue zyrtec MODE Continue home CPAP DVT Prophylaxis: TEDs/SCDs per primary team Code Status: FULL CODE PCP: [place] / [facility] Disposition: per primary team Remains medically stable Admission and Anticipated Discharge Date Admission Date: March 03, 2025 Subjective 03/04/2025 The patient was seen and examined in medical floor He is a status post L5-S1 decompression fusion on 03/03/2025 Minimal pain at the back but denies any other significant symptoms Review of Systems Review of Systems: All systems reviewed and unremarkable except as noted below Physical Exam Physical Exam: Lying in bed without any acute distress Constitutional: well developed, well nourished, + ill appearing and + obese Eyes: PERRL, conjunctivae normal, anicteric sclerae ENMT: external ear and nose normal, oropharynx normal Neck: trachea midline, no thyromegaly Respiratory: no respiratory distress Auscultation: lungs clear to auscultation bilaterally Cardiovascular: Rate/Rhythm: regular rate and regular rhythm; not tachycardic Heart Sounds: normal S1 and normal S2; no murmur Extremities: no edema Gastrointestinal (Abdomen): Inspection/Auscultation: normal bowel sounds; abdomen not distended Percussion/Palpation: abdomen soft; abdomen nontender Musculoskeletal: No acute arthritis involving any of the joint Neurologic: normal touch/pain/proprioception and moves all extremities; no focal motor deficits Lymphatic: no cervical or axillary lymphadenopathy Results & Data Results & Data Vital Signs (Past 12 Hours) Vital Signs Temp Pulse Resp BP Pulse Ox O2 Del Method 03/04/25 11:00 36.4 C L 96 H 16 148/84 H 100 Room Air 03/04/25 07:25 Room Air 03/04/25 07:25 36.5 C 90 16 137/79 95 Room Air 03/04/25 03:40 36.6 C 96 H 18 148/91 H 95 Room Air Laboratory Results Short CBC 03/04/25 Range/Units 08:12 WBC 14.83 H (4.8-10.8) K/ul Hgb 12.6 L (14.0-18.0) g/dl Hct 39.0 L (42.0-52.0) % Plt Count 182 (130-400) K/uL BMP 03/04/25 08:12 Sodium 137 Potassium 4.5 Chloride 101 Carbon Dioxide 26 BUN 21 Creatinine 1.23 Glucose 152 H Calcium 8.9 Medications Administered Current Inpatient Medications Acetaminophen (Acetaminophen 500 Mg Tab) 1,000 mg PO Q8H PRN PRN Reason: MILD Pain (1,2,3) & Pre PT Stop: 04/02/25 13:59 Al Hydrox/Mg Hydrox/Simethicone (Aluminum/Magnesium Susp 30 Ml Udc) 30 ml PO Q6H PRN PRN Reason: Dyspepsia Stop: 04/02/25 11:59 Bisacodyl (Bisacodyl 10 Mg Supp) 10 mg [place] DAILY PRN PRN Reason: Constipation Stop: 04/02/25 11:59 Cetirizine HCl (Cetirizine Hcl 10 Mg Tablet) 10 mg PO QAM JESUS Stop: 04/03/25 08:59 Last Admin: 03/04/25 08:00 Dose: 10 mg Cyclobenzaprine HCl (Cyclobenzaprine Hcl 10 Mg Tab) 10 mg PO Q8H PRN PRN Reason: Muscle Spasm Stop: 04/02/25 11:59 Diphenhydramine HCl (Diphenhydramine Capsule 25 Mg Cap) 25 mg PO Q6H PRN PRN Reason: Allergic Rhinitis/Insomnia Stop: 04/02/25 11:59 Famotidine (Famotidine 20 Mg Tab) 20 mg PO Q12H PRN PRN Reason: Dyspepsia Stop: 04/02/25 11:59 Hydromorphone HCl (Hydromorphone Inj 0.5 Mg/0.5 Ml Syr) 0.5 mg IV Q3H PRN PRN Reason: MODERATE Pain(4,5,6)/Pre PT Stop: 03/17/25 11:59 Hydromorphone HCl (Hydromorphone Inj 1 Mg/Ml Syringe) 1 mg IV Q3H PRN PRN Reason: SEVERE Pain (7,8,9,10) Stop: 03/17/25 11:59 Hydroxyzine HCl (Hydroxyzine Hcl 25 Mg Tab) 25 mg PO Q8H PRN PRN Reason: Anxiety Stop: 04/02/25 11:59 Cefazolin Sodium (Ancef 2000mg) 2,000 mg in 15 mls @ 3.75 mls/min IV Q8H [facility]; Protocol Stop: 03/06/25 08:03 Last Admin: 03/04/25 07:55 Dose: 3.75 mls/min Promethazine HCl (Phenergan) 12.5 mg in 50.5 mls @ 202 mls/hr IV Q6H PRN PRN Reason: Nausea And Vomiting Stop: 04/02/25 11:59 Dexamethasone 6 mg/ Syringe 1.5 mls @ 1 mls/min IV DAILY [facility] Stop: 03/06/25 09:02 Last Admin: 03/04/25 08:00 Dose: 1 mls/min Influenza Virus Vaccine Quadrival (Do Not Administer Flu Vaccine) 1 each N/A PRN PRN PRN Reason: Notification Stop: 04/02/25 11:59 Lorazepam (Lorazepam 0.5 Mg Tab) 0.5 mg PO Q8H PRN PRN Reason: Sedation/Anxiety Stop: 04/02/25 11:59 Lorazepam (Lorazepam 2 Mg/1 Ml Vial) 0.5 mg IV Q8H PRN PRN Reason: Sedation/Anxiety Stop: 04/02/25 11:59 Losartan Potassium (Losartan Potassium 50 Mg Tab) [facility] Stop: 04/03/25 08:59 Last Admin: 03/04/25 08:00 Dose: 100 mg Magnesium Hydroxide (Magnesium Hydroxide Susp 30 Ml Udc) 30 ml PO Q24H PRN PRN Reason: Constipation Stop: 04/02/25 11:59 Metoclopramide HCl (Metoclopramide Hcl Inj 5 Mg/Ml 2 Ml Vial) 10 mg IV Q6H PRN PRN Reason: Nausea &/or Vomiting Stop: 04/02/25 11:59 Naloxone HCl (Naloxone Hcl 0.4 Mg/1 Ml Vial/Carp) 0.1 mg IV Q5M PRN PRN Reason: Oversedation/Resp depression Stop: 04/02/25 11:59 Nortriptyline HCl (Nortriptyline Hcl 25 Mg Cap) 50 mg PO HS [facility] Stop: 04/02/25 20:59 Last Admin: 03/03/25 20:51 Dose: 50 mg Ondansetron HCl (Ondansetron Inj 2 Mg/Ml 2 Ml Vial) 4 mg IV Q6H PRN PRN Reason: Nausea &/or Vomiting Stop: 04/02/25 11:59 Ondansetron HCl (Ondansetron 4 Mg Od Tab) 4 mg PO Q6H PRN PRN Reason: Nausea Stop: 04/02/25 11:59 Oxycodone HCl (Oxycodone Hcl Ir 5 Mg Tab (Immediate Release)) 5 - 10 mg PO Q4H PRN PRN Reason: MOD/SEV Pain & Pre PT Stop: 03/17/25 11:59 Last Admin: 03/04/25 03:45 Dose: 10 mg Pantoprazole Sodium (Pantoprazole 40 Mg Tab) 40 mg PO DAILY PRN PRN Reason: GERD Stop: 04/02/25 11:59 Pneumococcal Polyvalent Vaccine (Do Not Administer Pneumococcal Vaccine) 1 each N/A PRN PRN PRN Reason: Notification Stop: 04/02/25 11:59 Polyethylene Glycol (Polyethylene (Miralax) 17 Gm Pack) 17 gm PO Q6 JESUS Stop: 04/03/25 05:59 Last Admin: 03/04/25 11:06 Dose: 17 gm Ropinirole HCl (Ropinirole Hcl 1 Mg Tablet) 1 mg PO QPM JESUS Stop: 04/02/25 20:59 Last Admin: 03/03/25 20:51 Dose: 1 mg Senna/Docusate Sodium (Docusate Sodium/Senna 50/8.6mg Tab) 2 tab PO HS JESUS Stop: 04/02/25 20:59 Last Admin: 03/03/25 20:50 Dose: 2 tab Sodium Biphosphate/Sodium Phosphate (Sod Phosphate/Sod Biphosphate Enema 132 Ml Btl) 132 ml [place] ONE PRN PRN Reason: Constipation Stop: 04/02/25 11:59 Tramadol HCl (Tramadol Hcl 50 Mg Tablet) 50 - 100 mg PO Q4H PRN PRN Reason: MOD/SEV Pain & Pre PT Stop: 04/02/25 11:59 Last Admin: 03/04/25 00:02 Dose: 100 mg Vitamin D (Cholecalciferol 125 Mcg (5,000 Units) Tab) 125 mcg PO QPM JESUS Stop: 04/02/25 20:59 Last Admin: 03/03/25 20:51 Dose: 125 mcg
[2025-03-04] MEDS: ACETAMINOPHEN 500 MG TAB PO PRN (20:14)
[2025-03-04] MEDS: COUGH DROP (SUGAR FREE) LOZ 24 LOZ/1 BOX BUCCAL PRN (21:25)
[2025-03-04 23:00] VITALS: RESP 16
[2025-03-05 08:02] VITALS: BP 128/78; PULSE 87; TEMP 97.9; O2SAT 95
--- NOTE | 2025-03-05 13:22 | Hospitalist Progress Note ---
Date of Service March 05, 2025 Assessment & Plan (1) Lumbosacral spondylosis with radiculopathy: (2) S/P lumbar fusion: (3) Hypertension: (4) GERD (gastroesophageal reflux disease): (5) Restless leg: (6) Sleep apnea: Plan 59 year old male with PMH significant for hypertension, restless leg syndrome, GERD, MODE on CPAP, allergies and lumbosacral spondylosis with radiculopathy who underwent L5-S1 decompression and fusion on 03/03/[address] Mohan. We have been consulted for post operative medical management. Lumbosacral spondylosis with radiculopathy S/P L5-S1 decompression and fusion on 03/03/[address] Mohan Activity level, pain control, DVT prophylaxis, bowel regimen, wound/drain care as per primary team Monitor labs in am for post op anemia (preop Hgb 13.6 and EBL 200cc) Encourage incentive spirometer Continue nortriptyline HS Minimal pain at the back without any radiation Management will be as per orthopedic surgeon Remains medically stable and the back pain is minimal He has been ambulating without much difficulties Awaiting to be discharged Hypertension Continue losartan Blood pressure remains stable in the upper side at 148/84 and will continue current medications GERD Continue pantoprazole No epigastric discomfort, nausea no vomiting RLS Continue ropinirole Allergies Continue zyrtec MODE Continue home CPAP DVT Prophylaxis: TEDs/SCDs per primary team Code Status: FULL CODE PCP: [place] / [facility] Disposition: per primary team Remains medically stable Admission and Anticipated Discharge Date Admission Date: March 03, 2025 Subjective 03/04/2025 The patient was seen and examined in medical floor He is a status post L5-S1 decompression fusion on 03/03/2025 Minimal pain at the back but denies any other significant symptoms 02/25/2025 Patient was seen and examined in medical floor in presence of the He has been stable and waiting to be seen by Dr. Mohan before discharge Denies any significant symptoms and the pain is minimal Review of Systems Review of Systems: All systems reviewed and unremarkable except as noted below Physical Exam Physical Exam: Lying in bed without any acute distress Constitutional: well developed, well nourished, + ill appearing and + obese Eyes: PERRL, conjunctivae normal, anicteric sclerae ENMT: external ear and nose normal, oropharynx normal Neck: trachea midline, no thyromegaly Respiratory: no respiratory distress Auscultation: lungs clear to auscultation bilaterally Cardiovascular: Rate/Rhythm: regular rate and regular rhythm; not tachycardic Heart Sounds: normal S1 and normal S2; no murmur Extremities: no edema Gastrointestinal (Abdomen): Inspection/Auscultation: normal bowel sounds; abdomen not distended Percussion/Palpation: abdomen soft; abdomen nontender Musculoskeletal: No acute arthritis involving any of the joint Neurologic: normal touch/pain/proprioception and moves all extremities; no focal motor deficits Lymphatic: no cervical or axillary lymphadenopathy Results & Data Results & Data Vital Signs (Past 12 Hours) Vital Signs Temp Pulse Resp BP Pulse Ox O2 Del Method 03/05/25 07:30 Room Air, CPAP 03/05/25 07:07 36.6 C 87 16 128/78 95 Room Air Medications Administered Current Inpatient Medications Acetaminophen (Acetaminophen 500 Mg Tab) 1,000 mg PO Q8H PRN PRN Reason: MILD Pain (1,2,3) & Pre PT Stop: 04/02/25 13:59 Last Admin: 03/05/25 05:50 Dose: 1,000 mg Al Hydrox/Mg Hydrox/Simethicone (Aluminum/Magnesium Susp 30 Ml Udc) 30 ml PO Q6H PRN PRN Reason: Dyspepsia Stop: 04/02/25 11:59 Bisacodyl (Bisacodyl 10 Mg Supp) 10 mg WA DAILY PRN PRN Reason: Constipation Stop: 04/02/25 11:59 Cetirizine HCl (Cetirizine Hcl 10 Mg Tablet) 10 mg PO QAM [facility] Stop: 04/03/25 08:59 Last Admin: 03/05/25 07:46 Dose: 10 mg Cyclobenzaprine HCl (Cyclobenzaprine Hcl 10 Mg Tab) 10 mg PO Q8H PRN PRN Reason: Muscle Spasm Stop: 04/02/25 11:59 Diphenhydramine HCl (Diphenhydramine Capsule 25 Mg Cap) 25 mg PO Q6H PRN PRN Reason: Allergic Rhinitis/Insomnia Stop: 04/02/25 11:59 Famotidine (Famotidine 20 Mg Tab) 20 mg PO Q12H PRN PRN Reason: Dyspepsia Stop: 04/02/25 11:59 Hydromorphone HCl (Hydromorphone Inj 0.5 Mg/0.5 Ml Syr) 0.5 mg IV Q3H PRN PRN Reason: MODERATE Pain(4,5,6)/Pre PT Stop: 03/17/25 11:59 Hydromorphone HCl (Hydromorphone Inj 1 Mg/Ml Syringe) 1 mg IV Q3H PRN PRN Reason: SEVERE Pain (7,8,9,10) Stop: 03/17/25 11:59 Hydroxyzine HCl (Hydroxyzine Hcl 25 Mg Tab) 25 mg PO Q8H PRN PRN Reason: Anxiety Stop: 04/02/25 11:59 Cefazolin Sodium (Ancef 2000mg) 2,000 mg in 15 mls @ 3.75 mls/min IV Q8H JESUS; Protocol Stop: 03/06/25 08:03 Last Admin: 03/05/25 07:48 Dose: 3.75 mls/min Promethazine HCl (Phenergan) 12.5 mg in 50.5 mls @ 202 mls/hr IV Q6H PRN PRN Reason: Nausea And Vomiting Stop: 04/02/25 11:59 Dexamethasone 6 mg/ Syringe 1.5 mls @ 1 mls/min IV DAILY JESUS Stop: 03/06/25 09:02 Last Admin: 03/05/25 07:45 Dose: 1 mls/min Influenza Virus Vaccine Quadrival (Do Not Administer Flu Vaccine) 1 each N/A PRN PRN PRN Reason: Notification Stop: 04/02/25 11:59 Lorazepam (Lorazepam 0.5 Mg Tab) 0.5 mg PO Q8H PRN PRN Reason: Sedation/Anxiety Stop: 04/02/25 11:59 Lorazepam (Lorazepam 2 Mg/1 Ml Vial) 0.5 mg IV Q8H PRN PRN Reason: Sedation/Anxiety Stop: 04/02/25 11:59 Losartan Potassium (Losartan Potassium 50 Mg Tab) 100 mg PO QAM [facility] Stop: 04/03/25 08:59 Last Admin: 03/05/25 07:46 Dose: 100 mg Magnesium Hydroxide (Magnesium Hydroxide Susp 30 Ml Udc) 30 ml PO Q24H PRN PRN Reason: Constipation Stop: 04/02/25 11:59 Menthol (Cough Drop (Sugar Free) Dariel 24 Dariel/1 Box) 1 dariel BUCCAL PRN PRN PRN Reason: Sore Throat Stop: 04/03/25 20:19 Last Admin: 03/04/25 21:25 Dose: 1 dariel Metoclopramide HCl (Metoclopramide Hcl Inj 5 Mg/Ml 2 Ml Vial) 10 mg IV Q6H PRN PRN Reason: Nausea &/or Vomiting Stop: 04/02/25 11:59 Naloxone HCl (Naloxone Hcl 0.4 Mg/1 Ml Vial/Carp) 0.1 mg IV Q5M PRN PRN Reason: Oversedation/Resp depression Stop: 04/02/25 11:59 Nortriptyline HCl (Nortriptyline Hcl 25 Mg Cap) 50 mg PO HS JESUS Stop: 04/02/25 20:59 Last Admin: 03/04/25 20:14 Dose: 50 mg Ondansetron HCl (Ondansetron Inj 2 Mg/Ml 2 Ml Vial) 4 mg IV Q6H PRN PRN Reason: Nausea &/or Vomiting Stop: 04/02/25 11:59 Ondansetron HCl (Ondansetron 4 Mg Od Tab) 4 mg PO Q6H PRN PRN Reason: Nausea Stop: 04/02/25 11:59 Oxycodone HCl (Oxycodone Hcl Ir 5 Mg Tab (Immediate Release)) 5 - 10 mg PO Q4H PRN PRN Reason: MOD/SEV Pain & Pre PT Stop: 03/17/25 11:59 Last Admin: 03/04/25 03:45 Dose: 10 mg Pantoprazole Sodium (Pantoprazole 40 Mg Tab) 40 mg PO DAILY PRN PRN Reason: GERD Stop: 04/02/25 11:59 Pneumococcal Polyvalent Vaccine (Do Not Administer Pneumococcal Vaccine) 1 each N/A PRN PRN PRN Reason: Notification Stop: 04/02/25 11:59 Ropinirole HCl (Ropinirole Hcl 1 Mg Tablet) 1 mg PO QPM JESUS Stop: 04/02/25 20:59 Last Admin: 03/04/25 20:15 Dose: 1 mg Senna/Docusate Sodium (Docusate Sodium/Senna 50/8.6mg Tab) 2 tab PO HS JESUS Stop: 04/02/25 20:59 Last Admin: 03/04/25 20:14 Dose: 2 tab Sodium Biphosphate/Sodium Phosphate (Sod Phosphate/Sod Biphosphate Enema 132 Ml Btl) 132 ml WA ONE PRN PRN Reason: Constipation Stop: 04/02/25 11:59 Tramadol HCl (Tramadol Hcl 50 Mg Tablet) 50 - 100 mg PO Q4H PRN PRN Reason: MOD/SEV Pain & Pre PT Stop: 04/02/25 11:59 Last Admin: 03/05/25 02:37 Dose: 100 mg Vitamin D (Cholecalciferol 125 Mcg (5,000 Units) Tab) 125 mcg PO QPM JESUS Stop: 04/02/25 20:59 Last Admin: 03/04/25 20:15 Dose: 125 mcg
--- NOTE | 2025-03-05 14:29 | Discharge Summary ---
Date of Service March 05, 2025 Admission HPI Per Admitting Provider This is a 59-year-old male presents for chronic persistent back and leg pain and failing course of nonoperative care is here for surgical intervention Discharge Data Consultations 03/03/25 12:00 Consult Hospitalist Routine Procedures Performed Operation Date: 03/03/25 07:45 Actual Procedures p L5-S1 Decompression and Fusion(Not Applicable) - Luis Mohan DO [facility] Course (1) Lumbosacral spondylosis with radiculopathy: Patient is a pleasant 59-year-old male with history physical examination and radiographic images consistent of the above-mentioned diagnosis. The surgery was brought to the operating room on 03/03/2025 and undergone a lumbar decompression and fusion at L5-S1. He was taken to the PACU in stable condition with the DANK drain in place. He is then transferred to the orthopedic floor in stable condition as well. He was seen by physical therapy postop day #1. He was placed on GI DVT and pain control. Throughout his hospital course his calves remain supple and nontender his dressing remained clean dry and intact. On postoperative day #2 he was deemed safe for home discharge. His discharge instructions were to change his dressing once daily till there is no drainage once there is no drainage he may shower. Should not drive the first 2 weeks after surgery. Pain medication has been sent to his pharmacy. He was to avoid any bending, lifting, or twisting. His follow-up visit is scheduled for 2 weeks he was to call and be seen sooner if he develops any increased drainage from the incision uncontrolled pain fever chills or weakness.
== END 2025-03-05 15:53 | disposition home or self-care (01) | DRG 402 ==
LOC: ASU 05:52 → PACUINP 10:02 → 3W 12:27